=== PATIENT | male | born 1960 | race Caucasian/White ===

== ENCOUNTER 2016-09-27 05:44 | Inpatient (IN) | payer OTHER ==
[~2016-09-27] VITALS: Ht 172.7 cm; Wt 79.8 kg
[2016-09-27] VITALS (14 sets, daily range): BP systolic 132–159; BP diastolic 93–112
[2016-09-27] MEDS ORDERED: LIDOCAINE 1% 1 ML SYRINGE. ID PRN (06:00)
[2016-09-27] MEDS ORDERED: FENTANYL PF 100 MCG/2 ML VIAL. IV PRN (06:00)
[2016-09-27] MEDS ORDERED: IV RINGERS,LACTATED 1000ML 1,000 ML IV SCH (06:00)
[2016-09-27] MEDS ORDERED: MIDAZOLAM HCL 2 MG/2 ML VIAL. IV PRN (06:00)
[2016-09-27] MEDS ORDERED: MULT-246 PO (06:22)
[2016-09-27] MEDS ORDERED: FENTANYL PF 250 MCG/5 ML VIAL. ONE (07:03)
[2016-09-27] MEDS ORDERED: LIDOCAINE 2% PF Vial for OR 5 ML VIAL. ONE (07:04)
[2016-09-27] MEDS ORDERED: MIDAZOLAM HCL 2 MG/2 ML VIAL. ONE (07:04)
[2016-09-27] MEDS ORDERED: PROPOFOL 20 ML IV ONE (07:04)
[2016-09-27] MEDS ORDERED: ONDANSETRON PF 4 MG/2 ML VIAL. ONE (07:04)
[2016-09-27] MEDS ORDERED: DEXAMETHASONE SOD PHOS 20 MG/5 ML VIAL. ONE (07:04)
[2016-09-27] MEDS ORDERED: FAMOTIDINE 20 MG/2 ML VIAL ONE (07:04)
[2016-09-27] MEDS ORDERED: ROCURONIUM 50 MG/5 ML VIAL. ONE (07:07)
[2016-09-27] MEDS ORDERED: CEFAZOLIN 2GM PREMIX 50 ML IV ONE (07:11)
[2016-09-27 07:12] LABS: BASO % 0 % (0-3); EOS % 3 % (0-3); HEMATOCRIT 49.1 % (39.0-53.0); HEMOGLOBIN 16.3 g/dL (13.0-17.5); LYMPH # 1.2 x10^3/uL (1.0-4.8); LYMPH % 19 % (24-48); MEAN CORPUSCULAR HEMOGLOBIN 30 pg (25-35); MEAN CORPUSCULAR HGB CONC 33 g/dL (31-37); MEAN CORPUSCULAR VOLUME 90 fL (79-100); MONO % 12 % (0-9); NEUT % 67 % (31-73); PLATELET COUNT 154 x10^3/uL (140-400); RED BLOOD COUNT 5.46 x10^6/uL (4.30-5.70); WHITE BLOOD COUNT 6.7 x10^3/uL (4.0-11.0)
[2016-09-27 07:35] LABS: CREATININE 1.2 mg/dL (0.7-1.3); GFR 62.9; POTASSIUM 3.7 mmol/L (3.5-5.1)
[2016-09-27 07:41] LABS: ALBUMIN/GLOBULIN RATIO 1.1 (1.0-1.7); TOTAL BILIRUBIN 1.1 mg/dL (0.2-1.0); TOTAL PROTEIN 7.5 g/dL (6.4-8.2)
[2016-09-27] MEDS ORDERED: SEVOFLURANE 61 TO 120 MINUTES. IH ONE (08:05)
[2016-09-27] MEDS ORDERED: PHENYLEPHRINE in 0.9% NACL PF 1 MG/10 ML DISP.SYRIN. IV ONE (08:05)
[2016-09-27] MEDS ORDERED: NEOSTIGMINE METHYLSULFATE 5 MG/5 ML SYRINGE. ONE (09:22)
[2016-09-27] MEDS ORDERED: GLYCOPYRROLATE 1 MG/5 ML VIAL. ONE (09:22)
[2016-09-27] MEDS ORDERED: FENTANYL PF 100 MCG/2 ML VIAL. ONE (10:04)
[2016-09-27] MEDS ORDERED: 0.9 % SODIUM CHLORIDE 10 ML DISP.SYRIN. IV PRN (11:15)
[2016-09-27] MEDS ORDERED: ONDANSETRON PF 4 MG/2 ML VIAL. IV PRN (11:15)
[2016-09-27] MEDS ORDERED: HYDROMORPHONE STANDARD PCA 30 ML IV PRN (11:15)
[2016-09-27] MEDS ORDERED: PROCHLORPERAZINE 10 MG/2 ML VIAL. IV PRN (11:15)
[2016-09-27] MEDS: FENTANYL PF 100 MCG/2 ML VIAL. IV PRN ×4 (11:20→12:11)
--- NOTE | 2016-09-27 11:25 | PDOC4 ---
Operative Note Operative Note Operative Note: Preoperative Diagnosis: Cecal tubular adenoma Postoperative Diagnosis: Same Procedure: Laparoscopic right colon resection Surgeon: Giles Paste Mixer: Kelly BEE. Anesthesia: Gen. EBL: 50 mL Specimen: Right colon to pathology Drains: 11/17 in nina drain to incision Complications: None Indication: The patient is a 56-year-old male who is referred following a recent screening colonoscopy. This identified villous appearing lesion in the cecum which was too large for endoscopic resection. A biopsy was performed that identified a tubular adenoma. He was referred for surgical resection. I discussed with him a laparoscopic resection of the right colon. The details and risks of surgery were discussed. The risks include bleeding, infection, anastomotic leak, pain, hernia formation, bowel obstruction, anesthetic risk, potential need for additional surgery or procedure. He understands and would like to proceed. Description: The patient was taken to the operating room and placed supine on the operating table. Gen. anesthesia was performed. The abdomen was prepped with ChloraPrep and draped in a standard surgical manner. A small incision was made in the left abdomen through which a visualized 5 mm trocar was inserted. A pneumoperitoneum was developed and the laparoscope was introduced. There was no evidence of intra-abdominal bleeding or visceral injury. A 5 mm trocar was placed in left lower quadrant and another in the suprapubic region. We began with mobilization of the right colon. The lateral peritoneal attachments were divided using the Harmonic scalpel. We then continued along the descending colon freeing the bowel from lateral to medial. Another 5 mm trochars placed in the upper midabdomen to assist with the hepatic flexure. We began freeing up the colon from the omental attachments it from the stomach. This was continued toward the hepatic flexure. The patient had numerous attachments of the hepatic flexure many of which were fairly tight. We were able to mobilize all of these and free the flexure away from the liver. During dissection were able to identify the duodenum and it was preserved. The bowel was then able to be completely rotated toward the midline in the right colon appeared fully mobilized. A small transverse incision was made in the right abdomen with a scalpel. Cautery dissection was carried through the anterior and posterior fascial layers and the muscles divided. The Demetri wound protector was then inserted providing for some retraction. The right colon was then brought out extracorporeally. The bowel was divided at the distal ileum using a MELVIN-75 stapling device. The mesentery of the right colon was then dissected. Blood vessels were ligated with 2-0 Vicryl and there were divided. The LigaSure device assisted with mesenteric dissection. The transverse colon was then divided just distal to the hepatic flexure with a MELVIN-75 stapling device. The remaining mesentery was dissected and blood vessels were secured with 2-0 Vicryl ties. The right colon specimen was then sent off to pathology. Gross evaluation showed the adenomatous lesion to be present with no other abnormalities. A stapled [id number], functional end-to-end anastomosis was then constructed between the distal ileum and transverse colon. The antimesenteric portion of both limbs of bowel were opened and the stapler device was then introduced and deployed creating the anastomosis. The common enterotomy was oversewn with a 3-0 PDS suture. All of the staple lines were reinforced with 3-0 Vicryl interrupted sutures placed in the seromuscular layer. The bowel was then returned to the abdominal cavity. The posterior fascia was closed with a running 0 PDS suture. The anterior fascia was also closed with a running 1 PDS suture. The abdomen was then reinsufflated and inspected. Hemostasis appeared good. The anastomosis was well-visualized and was viable with no undue tension. The remaining ports were then removed and the pneumoperitoneum was relieved. The subcutaneous layer of the extraction incision was closed with 3-0 Vicryl. A 3/8 inch Nina drain was left deep to the skin with an exit site laterally. This was secured to the skin with a suture as well. The skin at all incisions was then closed with a running 4-0 Monocryl suture. The patient tolerated the procedure well and was sent to the recovery room in stable condition. At the end of the case all counts were correct. JOSHUA WRIGHT MD Sep 27, 2016 11:25
[2016-09-27] MEDS ORDERED: MORPHINE SULFATE 2 MG/ML DISP.SYRIN. ONE (11:39)
[2016-09-27] MEDS: POTASSIUM CL 20MEQ D5-0.45NACL 1,000 ML IV SCH ×2 (13:01→22:33)
[2016-09-27] MEDS: AMLODIPINE BESYLATE 10 MG TABLET PO SCH (14:13)
[2016-09-27] MEDS: LABETALOL 20 MG/4 ML DISP.SYRIN. IVP PRN (16:47)
--- NOTE | 2016-09-27 17:40 | CONS ---
DATE OF CONSULTATION: 09/27/2016 CHIEF COMPLAINT: Postop hypertension. HISTORY OF PRESENT ILLNESS: The patient is a pleasant middle-aged male who had a resection of his entire colon. He apparently has a tubular adenoma that was diagnosed on a colonoscopy. Postoperatively, he has been having some high pressures. Dr. Skaggs has consulted us for evaluation and treatment of his hypertension. PAST MEDICAL HISTORY: Benign. ALLERGIES: None. FAMILY HISTORY: Hypertension. SOCIAL HISTORY: He is . He does not drink, smoke or take drugs. MEDICATIONS: Reviewed, please refer to the MRAD. REVIEW OF SYSTEMS: GENERAL: No history of weight change, weakness or fevers. SKIN: No bruising, hair changes or rashes. EYES: No blurred, double or loss of vision. NOSE AND THROAT: No history of nosebleeds, hoarseness or sore throat. HEART: No history of palpitations, chest pain or shortness of breath on exertion. LUNGS: Denies cough, hemoptysis, wheezing or shortness of breath. GASTROINTESTINAL: Denies changes in appetite, nausea, vomiting, diarrhea or constipation. GENITOURINARY: He complains of abdominal pain from his incision. NEUROLOGIC: Denies history of numbness, tingling, tremor or weakness. PSYCHIATRIC: No history of panic, anxiety or depression. ENDOCRINE: No history of heat or cold intolerance, polyuria or polydipsia. EXTREMITIES: Denies muscle weakness, joint pain, pain on walking or stiffness. PHYSICAL EXAMINATION: VITAL SIGNS: Temperature afebrile, pulse 100, respirations 20, blood pressures ranging from 156/105 to 171/101. HEART: Distant S1, S2. LUNGS: Clear to auscultation. ABDOMEN: Soft. Decreased bowel sounds, tender. There are 5 trocars sites that appear to be clean, dry and intact. ENDOCRINE: No thyromegaly. LYMPHATICS: No cervical nodes. HEMATOPOIETIC: No bruising. PSYCHIATRIC: He seems a little depressed. EXTREMITIES: No cyanosis, clubbing or edema. LABORATORY DATA: White count 6.7, hemoglobin 16.3, platelets 154. Electrolytes normal. ASSESSMENT AND PLAN: Accelerated hypertension. The patient has been to surgery earlier today. He is now on a ____ in his room. We certainly agree with that treatment for now. I am going to go and add in Norvasc 10 p.o. every day and labetalol 20 IV q.6h. p.r.n. We will recheck the CBC, BMP in the morning. Continue wound care. Await pathology report. Thank you very much for allowing us to participate in the care of this nice gentleman. ERIS SOW DO DR: TAWNYA/areli JOB#: [id number] / [id number]
[2016-09-27] MEDS: ENOXAPARIN 40 MG/0.4 ML DISP.SYRIN. SQ SCH (22:32)
[2016-09-28 03:30] VITALS: BP 141/91
[2016-09-28] MEDS: POTASSIUM CL 20MEQ D5-0.45NACL 1,000 ML IV SCH ×3 (05:15→21:22)
[2016-09-28 05:30] LABS: BASO % 0 % (0-3); EOS % 0 % (0-3); HEMATOCRIT 44.3 % (39.0-53.0); HEMOGLOBIN 14.5 g/dL (13.0-17.5); LYMPH # 0.8 x10^3/uL (1.0-4.8); LYMPH % 6 % (24-48); MEAN CORPUSCULAR HEMOGLOBIN 29 pg (25-35); MEAN CORPUSCULAR HGB CONC 33 g/dL (31-37); MEAN CORPUSCULAR VOLUME 89 fL (79-100); MONO % 9 % (0-9); NEUT % 85 % (31-73); PLATELET COUNT 181 x10^3/uL (140-400); RED BLOOD COUNT 4.96 x10^6/uL (4.30-5.70); RED CELL DISTRIBUTION WIDTH 12.9 % (11.5-14.5); WHITE BLOOD COUNT 14.6 x10^3/uL (4.0-11.0)
[2016-09-28 05:47] LABS: CALCIUM 8.1 mg/dL (8.5-10.1); CREATININE 1.2 mg/dL (0.7-1.3); GFR 62.9; POTASSIUM 4.2 mmol/L (3.5-5.1)
[2016-09-28 07:00] VITALS: BP 138/94
[2016-09-28] MEDS: AMLODIPINE BESYLATE 10 MG TABLET PO SCH (09:03)
[2016-09-28 09:26] LABS: PLT ESTIMATE ADEQUATE (ADEQUATE)
--- NOTE | 2016-09-28 10:34 | PDOC ---
CALLIE VERDIN IN [employer]OL S[employer] COORDINATOR 09/28/16 1034: SURGICAL PROGRESS NOTE Subjective nausea this AM no flatus no pain Vital Signs Vital Signs Date Time Temp Pulse Resp B/P Pulse Ox O2 Delivery O2 Flow Rate FiO2 09/28/16 09:03 87 138/94 09/28/16 08:00 Room Air 09/28/16 07:00 98.8 18 99 2.0 98.8 I&O Intake and Output 09/28/16 07:00 Intake Total 50 ml Output Total 1400 ml Balance -1350 ml Intake Oral 0 ml IV Total 50 ml Output Urine Total 1400 ml PATIENT HAS A BANEGAS: No General: Alert, Oriented X3, Cooperative, No acute distress Abdomen: Soft, Other (ND, NTTP) Labs Laboratory Tests Test 09/27/16 06:30 09/28/16 05:25 White Blood Count 6.7x10^3/uL (4.0-11.0) 14.6x10^3/uL (4.0-11.0) Red Blood Count 5.46x10^6/uL (4.30-5.70) 4.96x10^6/uL (4.30-5.70) Hemoglobin 16.3g/dL (13.0-17.5) 14.5g/dL (13.0-17.5) Hematocrit 49.1% (39.0-53.0) 44.3% (39.0-53.0) Mean Corpuscular Volume 90fL (79-100) 89fL (79-100) Mean Corpuscular Hemoglobin 30pg (25-35) 29pg (25-35) Mean Corpuscular Hemoglobin Concent 33g/dL (31-37) 33g/dL (31-37) Red Cell Distribution Width 13.0% (11.5-14.5) 12.9% (11.5-14.5) Platelet Count 154x10^3/uL (140-400) 181x10^3/uL (140-400) Neutrophils (%) (Auto) 67% (31-73) 85% (31-73) Lymphocytes (%) (Auto) 19% (24-48) 6% (24-48) Monocytes (%) (Auto) 12% (0-9) 9% (0-9) Eosinophils (%) (Auto) 3% (0-3) 0% (0-3) Basophils (%) (Auto) 0% (0-3) 0% (0-3) Neutrophils # (Auto) 4.5x10^3uL (1.8-7.7) 12.4x10^3uL (1.8-7.7) Lymphocytes # (Auto) 1.2x10^3/uL (1.0-4.8) 0.8x10^3/uL (1.0-4.8) Monocytes # (Auto) 0.8x10^3/uL (0.0-1.1) 1.3x10^3/uL (0.0-1.1) Eosinophils # (Auto) 0.2x10^3/uL (0.0-0.7) 0.0x10^3/uL (0.0-0.7) Basophils # (Auto) 0.0x10^3/uL (0.0-0.2) 0.0x10^3/uL (0.0-0.2) Sodium Level 140mmol/L (136-145) 139mmol/L (136-145) Potassium Level 3.7mmol/L (3.5-5.1) 4.2mmol/L (3.5-5.1) Chloride Level 103mmol/L (98-107) 103mmol/L (98-107) Carbon Dioxide Level 26mmol/L (21-32) 29mmol/L (21-32) Anion Gap 11 (6-14) 7 (6-14) Blood Urea Nitrogen 13mg/dL (8-26) 12mg/dL (8-26) Creatinine 1.2mg/dL (0.7-1.3) 1.2mg/dL (0.7-1.3) Estimated GFR (Cockcroft-Gault) 62.9 62.9 BUN/Creatinine Ratio 11 (6-20) Glucose Level 85mg/dL (70-99) 133mg/dL (70-99) Calcium Level 9.0mg/dL (8.5-10.1) 8.1mg/dL (8.5-10.1) Total Bilirubin 1.1mg/dL (0.2-1.0) Aspartate Amino Transf (AST/SGOT) 24U/L (15-37) Alanine Aminotransferase (ALT/SGPT) 25U/L (16-63) Alkaline Phosphatase 53U/L (46-116) Total Protein 7.5g/dL (6.4-8.2) Albumin 4.0g/dL (3.4-5.0) Albumin/Globulin Ratio 1.1 (1.0-1.7) Segmented Neutrophils % 77% (35-66) Band Neutrophils % 4% (0-9) Lymphocytes % 9% (24-48) Atypical Lymphocytes % (Manual) 1% (0-0) Monocytes % 9% (0-10) Platelet Estimate Adequate (ADEQUATE) Laboratory Tests Test 09/28/16 05:25 White Blood Count 14.6x10^3/uL (4.0-11.0) Red Blood Count 4.96x10^6/uL (4.30-5.70) Hemoglobin 14.5g/dL (13.0-17.5) Hematocrit 44.3% (39.0-53.0) Mean Corpuscular Volume 89fL (79-100) Mean Corpuscular Hemoglobin 29pg (25-35) Mean Corpuscular Hemoglobin Concent 33g/dL (31-37) Red Cell Distribution Width 12.9% (11.5-14.5) Platelet Count 181x10^3/uL (140-400) Neutrophils (%) (Auto) 85% (31-73) Lymphocytes (%) (Auto) 6% (24-48) Monocytes (%) (Auto) 9% (0-9) Eosinophils (%) (Auto) 0% (0-3) Basophils (%) (Auto) 0% (0-3) Neutrophils # (Auto) 12.4x10^3uL (1.8-7.7) Lymphocytes # (Auto) 0.8x10^3/uL (1.0-4.8) Monocytes # (Auto) 1.3x10^3/uL (0.0-1.1) Eosinophils # (Auto) 0.0x10^3/uL (0.0-0.7) Basophils # (Auto) 0.0x10^3/uL (0.0-0.2) Segmented Neutrophils % 77% (35-66) Band Neutrophils % 4% (0-9) Lymphocytes % 9% (24-48) Atypical Lymphocytes % (Manual) 1% (0-0) Monocytes % 9% (0-10) Platelet Estimate Adequate (ADEQUATE) Sodium Level 139mmol/L (136-145) Potassium Level 4.2mmol/L (3.5-5.1) Chloride Level 103mmol/L (98-107) Carbon Dioxide Level 29mmol/L (21-32) Anion Gap 7 (6-14) Blood Urea Nitrogen 12mg/dL (8-26) Creatinine 1.2mg/dL (0.7-1.3) Estimated GFR (Cockcroft-Gault) 62.9 Glucose Level 133mg/dL (70-99) Calcium Level 8.1mg/dL (8.5-10.1) Problem List Problems Medical Problems: (1) Tubular adenoma of colon Status: Acute Assessment/Plan POD#1 lap right colon resection await bowel function Problems: JOSHUA WRIGHT MD 09/29/16 1215: SURGICAL PROGRESS NOTE Assessment/Plan Agree with above Problems: CALLIE VERDIN APRN Sep 28, 2016 10:34 JOSHUA WRIGHT MD Sep 29, 2016 12:15
[2016-09-28 11:00] VITALS: BP 142/88
[2016-09-28 15:00] VITALS: BP 154/97
--- NOTE | 2016-09-28 15:09 | PDOC ---
PROGRESS NOTES Chief Complaint Chief Complaint Polyp resection Accelerated HTN ASSESSMENT AND PLAN: 1. Colon Polyp: s/p R hemicolectomy on 09/[address] Skaggs. recovering appropriately. remains NPO for now 2. Pain control: good with [employer]GER. 3. Constipation: surgical and narcotic induced. d/w pt. he is already trying to minimize [employer]GER. 3. HTN: had been noted by new PCP. not on meds prior to admit. Norvasc started here, monitor. labetalol PRN 4. Prophylaxis: lovenox 5. Dispo: home when PO established Vitals Vitals Vital Signs Date Time Temp Pulse Resp B/P Pulse Ox O2 Delivery O2 Flow Rate FiO2 09/28/16 11:00 97.9 92 18 142/88 97 Room Air 97.9 09/28/16 07:00 2.0 Physical Exam General: Alert, Oriented X3, Cooperative, No acute distress Abdomen: Soft, Other (ND, NTTP) Labs LABS Laboratory Tests Test 09/28/16 05:25 White Blood Count 14.6x10^3/uL (4.0-11.0) Red Blood Count 4.96x10^6/uL (4.30-5.70) Hemoglobin 14.5g/dL (13.0-17.5) Hematocrit 44.3% (39.0-53.0) Mean Corpuscular Volume 89fL (79-100) Mean Corpuscular Hemoglobin 29pg (25-35) Mean Corpuscular Hemoglobin Concent 33g/dL (31-37) Red Cell Distribution Width 12.9% (11.5-14.5) Platelet Count 181x10^3/uL (140-400) Neutrophils (%) (Auto) 85% (31-73) Lymphocytes (%) (Auto) 6% (24-48) Monocytes (%) (Auto) 9% (0-9) Eosinophils (%) (Auto) 0% (0-3) Basophils (%) (Auto) 0% (0-3) Neutrophils # (Auto) 12.4x10^3uL (1.8-7.7) Lymphocytes # (Auto) 0.8x10^3/uL (1.0-4.8) Monocytes # (Auto) 1.3x10^3/uL (0.0-1.1) Eosinophils # (Auto) 0.0x10^3/uL (0.0-0.7) Basophils # (Auto) 0.0x10^3/uL (0.0-0.2) Segmented Neutrophils % 77% (35-66) Band Neutrophils % 4% (0-9) Lymphocytes % 9% (24-48) Atypical Lymphocytes % (Manual) 1% (0-0) Monocytes % 9% (0-10) Platelet Estimate Adequate (ADEQUATE) Sodium Level 139mmol/L (136-145) Potassium Level 4.2mmol/L (3.5-5.1) Chloride Level 103mmol/L (98-107) Carbon Dioxide Level 29mmol/L (21-32) Anion Gap 7 (6-14) Blood Urea Nitrogen 12mg/dL (8-26) Creatinine 1.2mg/dL (0.7-1.3) Estimated GFR (Cockcroft-Gault) 62.9 Glucose Level 133mg/dL (70-99) Calcium Level 8.1mg/dL (8.5-10.1) Review of Systems Review of Systems feels ok, walking in flores. no flatus yet Comment Review of Relevant I have reviewed the following items bandar (where applicable) has been applied. Labs Laboratory Tests Test 09/27/16 06:30 09/28/16 05:25 White Blood Count 6.7x10^3/uL (4.0-11.0) 14.6x10^3/uL (4.0-11.0) Red Blood Count 5.46x10^6/uL (4.30-5.70) 4.96x10^6/uL (4.30-5.70) Hemoglobin 16.3g/dL (13.0-17.5) 14.5g/dL (13.0-17.5) Hematocrit 49.1% (39.0-53.0) 44.3% (39.0-53.0) Mean Corpuscular Volume 90fL (79-100) 89fL (79-100) Mean Corpuscular Hemoglobin 30pg (25-35) 29pg (25-35) Mean Corpuscular Hemoglobin Concent 33g/dL (31-37) 33g/dL (31-37) Red Cell Distribution Width 13.0% (11.5-14.5) 12.9% (11.5-14.5) Platelet Count 154x10^3/uL (140-400) 181x10^3/uL (140-400) Neutrophils (%) (Auto) 67% (31-73) 85% (31-73) Lymphocytes (%) (Auto) 19% (24-48) 6% (24-48) Monocytes (%) (Auto) 12% (0-9) 9% (0-9) Eosinophils (%) (Auto) 3% (0-3) 0% (0-3) Basophils (%) (Auto) 0% (0-3) 0% (0-3) Neutrophils # (Auto) 4.5x10^3uL (1.8-7.7) 12.4x10^3uL (1.8-7.7) Lymphocytes # (Auto) 1.2x10^3/uL (1.0-4.8) 0.8x10^3/uL (1.0-4.8) Monocytes # (Auto) 0.8x10^3/uL (0.0-1.1) 1.3x10^3/uL (0.0-1.1) Eosinophils # (Auto) 0.2x10^3/uL (0.0-0.7) 0.0x10^3/uL (0.0-0.7) Basophils # (Auto) 0.0x10^3/uL (0.0-0.2) 0.0x10^3/uL (0.0-0.2) Sodium Level 140mmol/L (136-145) 139mmol/L (136-145) Potassium Level 3.7mmol/L (3.5-5.1) 4.2mmol/L (3.5-5.1) Chloride Level 103mmol/L (98-107) 103mmol/L (98-107) Carbon Dioxide Level 26mmol/L (21-32) 29mmol/L (21-32) Anion Gap 11 (6-14) 7 (6-14) Blood Urea Nitrogen 13mg/dL (8-26) 12mg/dL (8-26) Creatinine 1.2mg/dL (0.7-1.3) 1.2mg/dL (0.7-1.3) Estimated GFR (Cockcroft-Gault) 62.9 62.9 BUN/Creatinine Ratio 11 (6-20) Glucose Level 85mg/dL (70-99) 133mg/dL (70-99) Calcium Level 9.0mg/dL (8.5-10.1) 8.1mg/dL (8.5-10.1) Total Bilirubin 1.1mg/dL (0.2-1.0) Aspartate Amino Transf (AST/SGOT) 24U/L (15-37) Alanine Aminotransferase (ALT/SGPT) 25U/L (16-63) Alkaline Phosphatase 53U/L (46-116) Total Protein 7.5g/dL (6.4-8.2) Albumin 4.0g/dL (3.4-5.0) Albumin/Globulin Ratio 1.1 (1.0-1.7) Segmented Neutrophils % 77% (35-66) Band Neutrophils % 4% (0-9) Lymphocytes % 9% (24-48) Atypical Lymphocytes % (Manual) 1% (0-0) Monocytes % 9% (0-10) Platelet Estimate Adequate (ADEQUATE) Laboratory Tests Test 09/28/16 05:25 White Blood Count 14.6x10^3/uL (4.0-11.0) Red Blood Count 4.96x10^6/uL (4.30-5.70) Hemoglobin 14.5g/dL (13.0-17.5) Hematocrit 44.3% (39.0-53.0) Mean Corpuscular Volume 89fL (79-100) Mean Corpuscular Hemoglobin 29pg (25-35) Mean Corpuscular Hemoglobin Concent 33g/dL (31-37) Red Cell Distribution Width 12.9% (11.5-14.5) Platelet Count 181x10^3/uL (140-400) Neutrophils (%) (Auto) 85% (31-73) Lymphocytes (%) (Auto) 6% (24-48) Monocytes (%) (Auto) 9% (0-9) Eosinophils (%) (Auto) 0% (0-3) Basophils (%) (Auto) 0% (0-3) Neutrophils # (Auto) 12.4x10^3uL (1.8-7.7) Lymphocytes # (Auto) 0.8x10^3/uL (1.0-4.8) Monocytes # (Auto) 1.3x10^3/uL (0.0-1.1) Eosinophils # (Auto) 0.0x10^3/uL (0.0-0.7) Basophils # (Auto) 0.0x10^3/uL (0.0-0.2) Segmented Neutrophils % 77% (35-66) Band Neutrophils % 4% (0-9) Lymphocytes % 9% (24-48) Atypical Lymphocytes % (Manual) 1% (0-0) Monocytes % 9% (0-10) Platelet Estimate Adequate (ADEQUATE) Sodium Level 139mmol/L (136-145) Potassium Level 4.2mmol/L (3.5-5.1) Chloride Level 103mmol/L (98-107) Carbon Dioxide Level 29mmol/L (21-32) Anion Gap 7 (6-14) Blood Urea Nitrogen 12mg/dL (8-26) Creatinine 1.2mg/dL (0.7-1.3) Estimated GFR (Cockcroft-Gault) 62.9 Glucose Level 133mg/dL (70-99) Calcium Level 8.1mg/dL (8.5-10.1) Medications Current Medications Midazolam HCl (Versed) 2 mg PRN 1X PRN IV PRIOR TO PROCEDURE; Start 09/27/16 at 06:00; Stop 09/28/16 at 05:59; Status DC Fentanyl Citrate (Fentanyl 2ml Vial) 25 mcg PRN Q5MIN PRN IV X 2 DOSES FOR PAIN ; Start 09/27/16 at 06:00; Stop 09/28/16 at 05:59; Status DC Fentanyl Citrate 50 mcg 50 mcg PRN Q5MIN PRN IV X 2 DOSES FOR PAIN Last administered on 09/27/16 12:11; Start 09/27/16 at 06:00; Stop 09/28/16 at 05:59 ; Status DC Lactated Ringer's (Iv Lactated Ringers) 1,000 ml @ 125 mls/hr Q8H IV Last administered on 09/27/16 06:54; Start 09/27/16 at 06:00; Stop 09/27/16 at 06:02 ; Status DC Lidocaine HCl 2 ml 1X PRN PRN ID IV START; Start 09/27/16 at 06:00; Stop at 05:59; Status DC Fentanyl Citrate (Fentanyl 5ml Vial) 250 mcg STK-MED ONCE .ROUTE ; Start at 07:03; Stop 09/27/16 at 07:04; Status DC Midazolam HCl (Versed) 2 mg STK-MED ONCE .ROUTE ; Start 09/27/16 at 07:04; Stop 09/27/16 at 07:05; Status DC Ondansetron HCl 4 mg 4 mg STK-MED ONCE .ROUTE ; Start 09/27/16 at 07:04; Stop at 07:05; Status DC Propofol (Diprivan) 20 ml @ As Directed STK-MED ONCE IV ; Start 09/27/16 at 07: 04; Stop 09/27/16 at 07:05; Status DC Lidocaine HCl (Lidocaine Pf 2% Vial) 5 ml STK-MED ONCE .ROUTE ; Start 09/27/16 at 07:04; Stop 09/27/16 at 07:05; Status DC Dexamethasone Sodium Phosphate (Decadron) 20 mg STK-MED ONCE .ROUTE ; Start at 07:04; Stop 09/27/16 at 07:05; Status DC Famotidine (Pepcid) 20 mg STK-MED ONCE .ROUTE ; Start 09/27/16 at 07:04; Stop at 07:05; Status DC Rocuronium [place] 50 mg 50 mg STK-MED ONCE .ROUTE ; Start 09/27/16 at 07:07; Stop 09/27/16 at 07:08; Status DC Cefazolin Sodium/ Dextrose (Ancef 2gm Premix) 50 ml @ As Directed STK-MED ONCE IV Last administered on 09/27/16t 07:27; Start 09/27/16 at 07:11; Stop at 07:12; Status DC Sevoflurane (Ultane) 60 ml STK-MED ONCE IH ; Start 09/27/16 at 08:05; Stop 09/27 at 08:06; Status DC Phenylephrine HCl 1 mg STK-MED ONCE IV ; Start 09/27/16 at 08:05; Stop 09/27/16 at 08:06; Status DC Glycopyrrolate (Robinul) 1 mg STK-MED ONCE .ROUTE ; Start 09/27/16 at 09:22; Stop 09/27/16 at 09:23; Status DC Neostigmine Methylsulfate 5 mg STK-MED ONCE .ROUTE ; Start 09/27/16 at 09:22; Stop 09/27/16 at 09:23; Status DC Fentanyl Citrate (Fentanyl 2ml Vial) 100 mcg STK-MED ONCE .ROUTE ; Start at 10:04; Stop 09/27/16 at 10:05; Status DC Enoxaparin Sodium (Lovenox 40mg Syringe) 40 mg Q24H SQ Last administered on 22:32; Start 09/27/16 at 22:00 Sodium Chloride 3 ml 3 ml QSHIFT PRN IV AFTER MEDS AND BLOOD DRAWS; Start 09/27 at 11:15 Potassium Chloride/Dextrose/ Sod Cl 1,000 ml @ 125 mls/hr Q8H IV Last administered on 09/28/16 12:59; Start 09/27/16 at 12:30 Hydromorphone HCl (Dilaudid Standard [employer]) 30 ml @ 0 mls/hr CONT PRN PRN IV PROTOCOL Last administered on 09/27/16 13:00; Start 09/27/16 at 11:15 Ondansetron HCl (Zofran) 4 mg PRN Q6HRS PRN IV NAUESA, 1ST CHOICE; Start at 11:15 Prochlorperazine Edisylate (Compazine) 5 mg PRN Q6HRS PRN IV N/V, 2nd Choice, MR X1; Start 09/27/16 at 11:15 Morphine Sulfate 2 mg STK-MED ONCE .ROUTE Last administered on 09/27/16 11:39 ; Start 09/27/16 at 11:39; Stop 09/27/16 at 11:40; Status DC Amlodipine Besylate (Norvasc) 10 mg DAILY PO Last administered on 09/28/16 09: 03; Start 09/27/16 at 14:00 Labetalol HCl (Normodyne) 20 mg PRN Q6HRS PRN IVP HYPERTENSION, SEE COMMENTS Last administered on 1/16/17at 16:47; Start 09/27/16 at 16:30 Active Scripts Active Reported Multi-Vitamin Daily (Multivitamin) 1 Each Tablet 1 Each PO Vitals/I & O Vital Sign - Last 24 Hours 09/27/16 09/27/16 09/27/16 09/27/16 15:57 16:47 16:49 17:47 Pulse 99 99 99 100 B/P 151/110 157/106 157/106 132/94 O2 Delivery Nasal Cannula O2 Flow Rate 2.0 09/27/16 09/27/16 09/27/16 09/27/16 18:07 19:18 19:47 20:00 Temp 99.0 99.0 Pulse 88 92 Resp 16 B/P 153/100 154/101 O2 Delivery Nasal Cannula Nasal Cannula Nasal Cannula O2 Flow Rate 2.0 2.0 2.0 09/27/16 09/28/16 09/28/16 09/28/16 22:50 03:30 07:00 08:00 Temp 97.7 98.4 98.8 97.7 98.4 98.8 Pulse 100 89 87 Resp 16 20 18 B/P 136/93 141/91 138/94 Pulse Ox 95 98 99 O2 Delivery Room Air Nasal Cannula Room Air O2 Flow Rate 2.0 09/28/16 09/28/16 09:03 11:00 Temp 97.9 97.9 Pulse 87 92 Resp 18 B/P 138/94 142/88 Pulse Ox 97 O2 Delivery Room Air Intake and Output 09/27/16 09/27/16 09/28/16 15:00 23:00 07:00 Intake Total 50 ml 0 ml 0 ml Output Total 450 ml 950 ml Balance 50 ml -450 ml -950 ml TAMIA ESCOBAR MD Sep 28, 2016 15:09
[2016-09-28 19:00] VITALS: BP 153/103
[2016-09-28] MEDS: ENOXAPARIN 40 MG/0.4 ML DISP.SYRIN. SQ SCH (21:22)
[2016-09-28] MEDS ORDERED: TEMAZEPAM 15 MG CAPSULE PO PRN (23:30)
[2016-09-28 23:35] VITALS: BP 173/104
[2016-09-29 03:09] VITALS: BP 195/108
[2016-09-29] MEDS: LABETALOL 20 MG/4 ML DISP.SYRIN. IVP PRN (04:07)
[2016-09-29] MEDS: POTASSIUM CL 20MEQ D5-0.45NACL 1,000 ML IV SCH (04:30)
[2016-09-29 07:00] VITALS: BP 155/103
--- NOTE | 2016-09-29 09:08 | PDOC ---
PROGRESS NOTES Chief Complaint Chief Complaint Polyp resection Accelerated HTN ASSESSMENT AND PLAN: 1. Colon Polyp: s/p R hemicolectomy on 09/[address] Skaggs. recovering appropriately. remains NPO for now 2. Pain control: good. ACCOUNT INSTALLATION SPECIALIST stopped. 3. Constipation: surgical and narcotic induced. no flatus yet 4. Heart burn: IV pepcid 5. HTN: had been noted by new PCP. not on meds prior to admit. Norvasc started here, monitor. labetalol PRN 6. insomnia: restoril PRN 7. Prophylaxis: lovenox 8. Dispo: home when PO established Vitals Vitals Vital Signs Date Time Temp Pulse Resp B/P Pulse Ox O2 Delivery O2 Flow Rate FiO2 09/29/16 07:00 98.8 96 18 155/103 95 Room Air 98.8 09/29/16 03:09 2.0 Physical Exam General: Alert, Oriented X3, Cooperative, No acute distress Heart: Regular rate Lungs: Clear Abdomen: Soft, Other ( mild TTP, sl distented. port incisions C/D/I) Extremities: No edema Skin: No rashes Review of Systems Review of Systems slept well with restoril. abd discomfort, no flatus Comment Review of Relevant I have reviewed the following items bandar (where applicable) has been applied. Labs Laboratory Tests Test 09/28/16 05:25 White Blood Count 14.6x10^3/uL (4.0-11.0) Red Blood Count 4.96x10^6/uL (4.30-5.70) Hemoglobin 14.5g/dL (13.0-17.5) Hematocrit 44.3% (39.0-53.0) Mean Corpuscular Volume 89fL (79-100) Mean Corpuscular Hemoglobin 29pg (25-35) Mean Corpuscular Hemoglobin Concent 33g/dL (31-37) Red Cell Distribution Width 12.9% (11.5-14.5) Platelet Count 181x10^3/uL (140-400) Neutrophils (%) (Auto) 85% (31-73) Lymphocytes (%) (Auto) 6% (24-48) Monocytes (%) (Auto) 9% (0-9) Eosinophils (%) (Auto) 0% (0-3) Basophils (%) (Auto) 0% (0-3) Neutrophils # (Auto) 12.4x10^3uL (1.8-7.7) Lymphocytes # (Auto) 0.8x10^3/uL (1.0-4.8) Monocytes # (Auto) 1.3x10^3/uL (0.0-1.1) Eosinophils # (Auto) 0.0x10^3/uL (0.0-0.7) Basophils # (Auto) 0.0x10^3/uL (0.0-0.2) Segmented Neutrophils % 77% (35-66) Band Neutrophils % 4% (0-9) Lymphocytes % 9% (24-48) Atypical Lymphocytes % (Manual) 1% (0-0) Monocytes % 9% (0-10) Platelet Estimate Adequate (ADEQUATE) Sodium Level 139mmol/L (136-145) Potassium Level 4.2mmol/L (3.5-5.1) Chloride Level 103mmol/L (98-107) Carbon Dioxide Level 29mmol/L (21-32) Anion Gap 7 (6-14) Blood Urea Nitrogen 12mg/dL (8-26) Creatinine 1.2mg/dL (0.7-1.3) Estimated GFR (Cockcroft-Gault) 62.9 Glucose Level 133mg/dL (70-99) Calcium Level 8.1mg/dL (8.5-10.1) Medications Current Medications Midazolam HCl (Versed) 2 mg PRN 1X PRN IV PRIOR TO PROCEDURE; Start 09/27/16 at 06:00; Stop 09/28/16 at 05:59; Status DC Fentanyl Citrate (Fentanyl 2ml Vial) 25 mcg PRN Q5MIN PRN IV X 2 DOSES FOR PAIN ; Start 09/27/16 at 06:00; Stop 09/28/16 at 05:59; Status DC Fentanyl Citrate 50 mcg 50 mcg PRN Q5MIN PRN IV X 2 DOSES FOR PAIN Last administered on 09/27/16 12:11; Start 09/27/16 at 06:00; Stop 09/28/16 at 05:59 ; Status DC Lactated Ringer's (Iv Lactated Ringers) 1,000 ml @ 125 mls/hr Q8H IV Last administered on 09/27/16 06:54; Start 09/27/16 at 06:00; Stop 09/27/16 at 06:02 ; Status DC Lidocaine HCl 2 ml 1X PRN PRN ID IV START; Start 09/27/16 at 06:00; Stop at 05:59; Status DC Fentanyl Citrate (Fentanyl 5ml Vial) 250 mcg STK-MED ONCE .ROUTE ; Start at 07:03; Stop 09/27/16 at 07:04; Status DC Midazolam HCl (Versed) 2 mg STK-MED ONCE .ROUTE ; Start 09/27/16 at 07:04; Stop 09/27/16 at 07:05; Status DC Ondansetron HCl 4 mg 4 mg STK-MED ONCE .ROUTE ; Start 09/27/16 at 07:04; Stop at 07:05; Status DC Propofol (Diprivan) 20 ml @ As Directed STK-MED ONCE IV ; Start 09/27/16 at 07: 04; Stop 09/27/16 at 07:05; Status DC Lidocaine HCl (Lidocaine Pf 2% Vial) 5 ml STK-MED ONCE .ROUTE ; Start 09/27/16 at 07:04; Stop 09/27/16 at 07:05; Status DC Dexamethasone Sodium Phosphate (Decadron) 20 mg STK-MED ONCE .ROUTE ; Start at 07:04; Stop 09/27/16 at 07:05; Status DC Famotidine (Pepcid) 20 mg STK-MED ONCE .ROUTE ; Start 09/27/16 at 07:04; Stop at 07:05; Status DC Rocuronium [place] 50 mg 50 mg STK-MED ONCE .ROUTE ; Start 09/27/16 at 07:07; Stop 09/27/16 at 07:08; Status DC Cefazolin Sodium/ Dextrose (Ancef 2gm Premix) 50 ml @ As Directed STK-MED ONCE IV Last administered on 09/27/16t 07:27; Start 09/27/16 at 07:11; Stop at 07:12; Status DC Sevoflurane (Ultane) 60 ml STK-MED ONCE IH ; Start 09/27/16 at 08:05; Stop 09/27 at 08:06; Status DC Phenylephrine HCl 1 mg STK-MED ONCE IV ; Start 09/27/16 at 08:05; Stop 09/27/16 at 08:06; Status DC Glycopyrrolate (Robinul) 1 mg STK-MED ONCE .ROUTE ; Start 09/27/16 at 09:22; Stop 09/27/16 at 09:23; Status DC Neostigmine Methylsulfate 5 mg STK-MED ONCE .ROUTE ; Start 09/27/16 at 09:22; Stop 09/27/16 at 09:23; Status DC Fentanyl Citrate (Fentanyl 2ml Vial) 100 mcg STK-MED ONCE .ROUTE ; Start at 10:04; Stop 09/27/16 at 10:05; Status DC Enoxaparin Sodium (Lovenox 40mg Syringe) 40 mg Q24H SQ Last administered on 21:22; Start 09/27/16 at 22:00 Sodium Chloride 3 ml 3 ml QSHIFT PRN IV AFTER MEDS AND BLOOD DRAWS; Start 09/27 at 11:15 Potassium Chloride/Dextrose/ Sod Cl 1,000 ml @ 125 mls/hr Q8H IV Last administered on 09/29/16 04:30; Start 09/27/16 at 12:30 Hydromorphone HCl (Dilaudid Standard ACCOUNT INSTALLATION SPECIALIST) 30 ml @ 0 mls/hr CONT PRN PRN IV PROTOCOL Last administered on 09/27/16 13:00; Start 09/27/16 at 11:15 Ondansetron HCl (Zofran) 4 mg PRN Q6HRS PRN IV NAUESA, 1ST CHOICE Last administered on 09/28/16 23:43; Start 09/27/16 at 11:15 Prochlorperazine Edisylate (Compazine) 5 mg PRN Q6HRS PRN IV N/V, 2nd Choice, MR X1; Start 09/27/16 at 11:15 Morphine Sulfate 2 mg STK-MED ONCE .ROUTE Last administered on 09/27/16 11:39 ; Start 09/27/16 at 11:39; Stop 09/27/16 at 11:40; Status DC Amlodipine Besylate (Norvasc) 10 mg DAILY PO Last administered on 09/28/16 09: 03; Start 09/27/16 at 14:00 Labetalol HCl (Normodyne) 20 mg PRN Q6HRS PRN IVP HYPERTENSION, SEE COMMENTS Last administered on 09/29/16 04:07; Start 09/27/16 at 16:30 Temazepam (Restoril) 15 mg PRN QHS PRN PO INSOMNIA Last administered on 23:41; Start 09/28/16 at 23:30 Active Scripts Active Reported Multi-Vitamin Daily (Multivitamin) 1 Each Tablet 1 Each PO Vitals/I & O Vital Sign - Last 24 Hours 09/28/16 09/28/16 09/28/16 09/28/16 09:03 11:00 15:00 19:00 Temp 97.9 98.2 100.4 97.9 98.2 100.4 Pulse 87 92 99 99 Resp 18 18 B/P 138/94 142/88 154/97 153/103 Pulse Ox 97 95 99 O2 Delivery Room Air Nasal Cannula Nasal Cannula O2 Flow Rate 2.0 2.0 09/28/16 09/28/16 09/28/16 09/29/16 20:45 21:21 23:35 03:09 Temp 101.1 97.9 101.1 97.9 Pulse 100 111 Resp 22 18 18 B/P 173/104 195/108 Pulse Ox 99 94 94 O2 Delivery Room Air Room Air Nasal Cannula Nasal Cannula O2 Flow Rate 2.0 2.0 09/29/16 09/29/16 04:07 07:00 Temp 98.8 98.8 Pulse 111 96 Resp 18 B/P 195/108 155/103 Pulse Ox 95 O2 Delivery Room Air Intake and Output 09/28/16 09/28/16 09/29/16 15:00 23:00 07:00 Intake Total 4919 ml Output Total 600 ml 825 ml 1650 ml Balance -600 ml -825 ml 3269 ml TAMIA ESCOBAR MD Sep 29, 2016 09:07
[2016-09-29] MEDS: FAMOTIDINE 20 MG/2 ML VIAL IVP SCH ×2 (09:41→14:53)
[2016-09-29] MEDS: POTASSIUM CL 20MEQ-0.45% NACL 1,000 ML IV SCH ×2 (09:42→23:27)
[2016-09-29] MEDS: AMLODIPINE BESYLATE 10 MG TABLET PO SCH (09:42)
[2016-09-29 11:00] VITALS: BP 165/108
--- NOTE | 2016-09-29 12:15 | PDOC ---
PROGRESS NOTES Subjective Subjective doing "ok", no flatus, feels some distension Objective Objective Vital Signs Date Time Temp Pulse Resp B/P Pulse Ox O2 Delivery O2 Flow Rate FiO2 09/29/16 11:00 99.0 99 16 165/108 96 Room Air 99.0 09/29/16 03:09 2.0 Intake and Output 09/29/16 07:00 Intake Total 4919 ml Output Total 3075 ml Balance 1844 ml Intake Oral 0 ml IV Total 4919 ml Output Urine Total 3075 ml Physical Exam Abdomen: Soft (mildly distended) Assessment Assessment Problems Medical Problems: (1) Tubular adenoma of colon Status: Acute Plan Plan of Care Keep NPO, await return of bowel function Comment Review of Relevant I have reviewed the following items bandar (where applicable) has been applied. Labs Laboratory Tests Test 09/28/16 05:25 White Blood Count 14.6x10^3/uL (4.0-11.0) Red Blood Count 4.96x10^6/uL (4.30-5.70) Hemoglobin 14.5g/dL (13.0-17.5) Hematocrit 44.3% (39.0-53.0) Mean Corpuscular Volume 89fL (79-100) Mean Corpuscular Hemoglobin 29pg (25-35) Mean Corpuscular Hemoglobin Concent 33g/dL (31-37) Red Cell Distribution Width 12.9% (11.5-14.5) Platelet Count 181x10^3/uL (140-400) Neutrophils (%) (Auto) 85% (31-73) Lymphocytes (%) (Auto) 6% (24-48) Monocytes (%) (Auto) 9% (0-9) Eosinophils (%) (Auto) 0% (0-3) Basophils (%) (Auto) 0% (0-3) Neutrophils # (Auto) 12.4x10^3uL (1.8-7.7) Lymphocytes # (Auto) 0.8x10^3/uL (1.0-4.8) Monocytes # (Auto) 1.3x10^3/uL (0.0-1.1) Eosinophils # (Auto) 0.0x10^3/uL (0.0-0.7) Basophils # (Auto) 0.0x10^3/uL (0.0-0.2) Segmented Neutrophils % 77% (35-66) Band Neutrophils % 4% (0-9) Lymphocytes % 9% (24-48) Atypical Lymphocytes % (Manual) 1% (0-0) Monocytes % 9% (0-10) Platelet Estimate Adequate (ADEQUATE) Sodium Level 139mmol/L (136-145) Potassium Level 4.2mmol/L (3.5-5.1) Chloride Level 103mmol/L (98-107) Carbon Dioxide Level 29mmol/L (21-32) Anion Gap 7 (6-14) Blood Urea Nitrogen 12mg/dL (8-26) Creatinine 1.2mg/dL (0.7-1.3) Estimated GFR (Cockcroft-Gault) 62.9 Glucose Level 133mg/dL (70-99) Calcium Level 8.1mg/dL (8.5-10.1) Medications Current Medications Midazolam HCl (Versed) 2 mg PRN 1X PRN IV PRIOR TO PROCEDURE; Start 09/27/16 at 06:00; Stop 09/28/16 at 05:59; Status DC Fentanyl Citrate (Fentanyl 2ml Vial) 25 mcg PRN Q5MIN PRN IV X 2 DOSES FOR PAIN ; Start 09/27/16 at 06:00; Stop 09/28/16 at 05:59; Status DC Fentanyl Citrate 50 mcg 50 mcg PRN Q5MIN PRN IV X 2 DOSES FOR PAIN Last administered on 09/27/16t 12:11; Start 09/27/16 at 06:00; Stop 09/28/16 at 05:59 ; Status DC Lactated Ringer's (Iv Lactated Ringers) 1,000 ml @ 125 mls/hr Q8H IV Last administered on 09/27/16 06:54; Start 09/27/16 at 06:00; Stop 09/27/16 at 06:02 ; Status DC Lidocaine HCl 2 ml 1X PRN PRN ID IV START; Start 09/27/16 at 06:00; Stop at 05:59; Status DC Fentanyl Citrate (Fentanyl 5ml Vial) 250 mcg STK-MED ONCE .ROUTE ; Start at 07:03; Stop 09/27/16 at 07:04; Status DC Midazolam HCl (Versed) 2 mg STK-MED ONCE .ROUTE ; Start 09/27/16 at 07:04; Stop 09/27/16 at 07:05; Status DC Ondansetron HCl 4 mg 4 mg STK-MED ONCE .ROUTE ; Start 09/27/16 at 07:04; Stop at 07:05; Status DC Propofol (Diprivan) 20 ml @ As Directed STK-MED ONCE IV ; Start 09/27/16 at 07: 04; Stop 09/27/16 at 07:05; Status DC Lidocaine HCl (Lidocaine Pf 2% Vial) 5 ml STK-MED ONCE .ROUTE ; Start 09/27/16 at 07:04; Stop 09/27/16 at 07:05; Status DC Dexamethasone Sodium Phosphate (Decadron) 20 mg STK-MED ONCE .ROUTE ; Start at 07:04; Stop 09/27/16 at 07:05; Status DC Famotidine (Pepcid) 20 mg STK-MED ONCE .ROUTE ; Start 09/27/16 at 07:04; Stop at 07:05; Status DC Rocuronium [place] 50 mg 50 mg STK-MED ONCE .ROUTE ; Start 09/27/16 at 07:07; Stop 09/27/16 at 07:08; Status DC Cefazolin Sodium/ Dextrose (Ancef 2gm Premix) 50 ml @ As Directed STK-MED ONCE IV Last administered on 09/27/16t 07:27; Start 09/27/16 at 07:11; Stop at 07:12; Status DC Sevoflurane (Ultane) 60 ml STK-MED ONCE IH ; Start 09/27/16 at 08:05; Stop 09/27 at 08:06; Status DC Phenylephrine HCl 1 mg STK-MED ONCE IV ; Start 09/27/16 at 08:05; Stop 09/27/16 at 08:06; Status DC Glycopyrrolate (Robinul) 1 mg STK-MED ONCE .ROUTE ; Start 09/27/16 at 09:22; Stop 09/27/16 at 09:23; Status DC Neostigmine Methylsulfate 5 mg STK-MED ONCE .ROUTE ; Start 09/27/16 at 09:22; Stop 09/27/16 at 09:23; Status DC Fentanyl Citrate (Fentanyl 2ml Vial) 100 mcg STK-MED ONCE .ROUTE ; Start at 10:04; Stop 09/27/16 at 10:05; Status DC Enoxaparin Sodium (Lovenox 40mg Syringe) 40 mg Q24H SQ Last administered on 21:22; Start 09/27/16 at 22:00 Sodium Chloride 3 ml 3 ml QSHIFT PRN IV AFTER MEDS AND BLOOD DRAWS; Start 09/27 at 11:15 Potassium Chloride/Dextrose/ Sod Cl 1,000 ml @ 125 mls/hr Q8H IV Last administered on 09/29/16 04:30; Start 09/27/16 at 12:30; Stop 09/29/16 at 09:08 ; Status DC Hydromorphone HCl (Dilaudid Standard P[employer]S MA[employer]ER) 30 ml @ 0 mls/hr CONT PRN PRN IV PROTOCOL Last administered on 09/27/16 13:00; Start 09/27/16 at 11:15 Ondansetron HCl (Zofran) 4 mg PRN Q6HRS PRN IV NAUESA, 1ST CHOICE Last administered on 09/28/16 23:43; Start 09/27/16 at 11:15 Prochlorperazine Edisylate (Compazine) 5 mg PRN Q6HRS PRN IV N/V, 2nd Choice, MR X1; Start 09/27/16 at 11:15 Morphine Sulfate 2 mg STK-MED ONCE .ROUTE Last administered on 09/27/16 11:39 ; Start 09/27/16 at 11:39; Stop 09/27/16 at 11:40; Status DC Amlodipine Besylate (Norvasc) 10 mg DAILY PO Last administered on 09/29/16 09: 42; Start 09/27/16 at 14:00 Labetalol HCl (Normodyne) 20 mg PRN Q6HRS PRN IVP HYPERTENSION, SEE COMMENTS Last administered on 09/29/16 04:07; Start 09/27/16 at 16:30 Temazepam (Restoril) 15 mg PRN QHS PRN PO INSOMNIA Last administered on 23:41; Start 09/28/16 at 23:30 Famotidine 20 mg 20 mg [id number] IVP Last administered on 09/29/16 09:41; Start at 09:15 Potassium Chloride/Sodium Chloride (KCl 20 Meq-0.45% Nacl) 1,000 ml @ 75 mls/ hr [id number] IV Last administered on 09/29/16 09:42; Start 09/29/16 at 09:15 Active Scripts Active Reported Multi-Vitamin Daily (Multivitamin) 1 Each Tablet 1 Each PO Vitals/I & O Vital Sign - Last 24 Hours 09/28/16 09/28/16 09/28/16 09/28/16 15:00 19:00 20:45 21:21 Temp 98.2 100.4 98.2 100.4 Pulse 99 99 Resp B/P 154/97 153/103 Pulse Ox 95 99 99 O2 Delivery Nasal Cannula Nasal Cannula Room Air Room Air O2 Flow Rate 2.0 2.0 09/28/16 09/29/16 09/29/16 09/29/16 23:35 03:09 04:07 07:00 Temp 101.1 97.9 98.8 101.1 97.9 98.8 Pulse 100 111 111 96 Resp 18 B/P 173/104 195/108 195/108 155/103 Pulse Ox 94 94 95 O2 Delivery Nasal Cannula Nasal Cannula Room Air O2 Flow Rate 2.0 2.0 09/29/16 09/29/16 09/29/16 08:00 09:42 11:00 Temp 99.0 99.0 Pulse 96 99 Resp 16 B/P 155/103 165/108 Pulse Ox 96 O2 Delivery Room Air Room Air Intake and Output 09/28/16 09/28/16 09/29/16 15:00 23:00 07:00 Intake Total 4919 ml Output Total 600 ml 825 ml 1650 ml Balance -600 ml -825 ml 3269 ml JOSHUA WRIGHT MD Sep 29, 2016 12:14
[2016-09-29 15:00] VITALS: BP 138/97
--- NOTE | 2016-09-29 18:45 | PATHOLOGY ---
PATHOLOGY REPORT * * * * * * * * FINAL DIAGNOSIS: Segment of distal ileum, cecum, and ascending colon with attached mesocolon, laparoscopic right colon resection: - Sessile tubular adenoma of cecum, measuring up to 5.0 cm in greatest dimension. - Small tubular adenoma adjacent to large sessile polyp. - Ten mesocolonic lymph nodes negative for tumor. - Adiposity of ileocecal valve. - Absence of appendix. - Healed enteric/enteric anastomosis of distal ileum. COMMENT: Sections of the cecal lesion reveal a large sessile tubular adenoma measuring up to 5.0 cm in greatest dimension. There is no high grade dysplasia or evidence of malignancy. There is an additional small tubular adenoma adjacent to the larger sessile polyp. (JPM:csd; d/t: 09/29/2016) REPORT ELECTRONICALLY SIGNED BY: Blayne Hoover M.D. DATE/TIME: 09/29/2016 17:13 * * * * * * * * GROSS PATHOLOGY: The specimen is received fresh for intraoperative consultation and is designated "right colon." This consists of a segment of distal ileum with contiguous cecum and ascending colon and attached mesocolon. The segment is stapled closed at both ends. The segment of distal ileum measures up to 10.0 cm in length and is focally dilated up to 4.1 cm in diameter. The cecum and ascending colon measure 13.5 cm in length. The appendix is absent. The serosa of the ileum is dark brown and hyperemic. The serosa of the cecum and ascending colon is pinkish brown and glistening. The attached mesocolon measures up to 10.0 cm in depth. The segment is opened along the antimesocolon. The ileal mucosa is yellowish green, transversely folded, and erythematous. There is a suggestion of an anastomotosis line within the distal ileum approximately 7.5 cm from the proximal margin of resection. The ileocecal valve is pink-yellow and erythematous. There is a sessile irregular, slightly raised pinkish brown polyp of the cecum just distal to the ileocecal valve. This measures up to 5.0 cm in length and 1.6 cm in width. Adjacent to this, is a slightly raised pink possible polyp measuring up to 0.5 cm. This is approximately 0.7 cm from the larger sessile lesion. The remainder of the cecal mucosa shows focal hemorrhage. The ascending colon mucosa is yellowish swift and transversely folded. There are no additional polyps or tumor masses. There are no enlarged nodes within the attached mesocolon. (JPM:mgr; d/t: 09/27/16) After overnight formalin fixation, the specimen is re-examined. The second smaller polyp is not definitively identified. The larger polyp is located 8.7 cm from the proximal/ileal margin and 8.3 cm from the distal/colonic margin. The serosa corresponding to the larger polyp is inked black. The polyp is serially sectioned. It is grossly confined to the mucosa and is located approximately 0.7 cm from the free/inked serosal surface. The remaining colonic and ileal mucosa is grossly unremarkable. Dissection of the mesenteric fat reveals multiple pink-swift lymph nodes ranging from 0.2-0.9 cm in greatest dimension. Heel Varnisher sections are submitted as follows: A1 proximal/terminal ileal margin, en face A2 distal/colonic margin, en face A3 possible ileal anastomosis A4 larger polyp to include ileocecal valve A5-A9 remainder of larger polyp A10 possible smaller polyp A11-A12 multiple intact and possible lymph nodes (TTL; 09/28/2016) INTRAOPERATIVE CONSULTATION (Jude Hoover M.D.) Distal ileum, cecum, and ascending colon with attached mesocolon, laparoscopic right colon resection: - Large sessile polyp and small polyp of cecum. The results are displayed to Dr. Skaggs in the operating room. The specimen is fixed in formalin prior to additional sectioning. (JPM:mgr; d/t: 09/27/16) Testing performed by [facility] at [address] [address] INITIAL CPT CODE(S): A; 91076, 53625 Professional services performed by [facility] at [address] [address] Technical services performed by [facility] at [address] [place] [address], [address], [place] [address]. SPECIMEN(S) RECEIVED: A.Right colon CLINICAL HISTORY: Tubular adenoma of colon PATIENT: GALINA [place] /AGE: 804/28/1960 (Age: 56) PATIENT #: [id number] ALT CASE #: SPECIMEN COLLECTION DATE: 09/27/2016 SPECIMEN RECEIVED DATE: 09/27/2016 [facility] - [id number] [address] - PHONE: [phone] * * * END OF REPORT * * *
[2016-09-29 19:25] VITALS: BP 150/95
[2016-09-29] MEDS: ENOXAPARIN 40 MG/0.4 ML DISP.SYRIN. SQ SCH (20:58)
[2016-09-29 23:30] VITALS: BP 137/98
[2016-09-30 03:21] VITALS: BP 156/104
[2016-09-30 05:12] LABS: BASO # 0.1 x10^3/uL (0.0-0.2); BASO % 1 % (0-3); EOS % 1 % (0-3); HEMATOCRIT 48.6 % (39.0-53.0); HEMOGLOBIN 16.1 g/dL (13.0-17.5); LYMPH # 2.5 x10^3/uL (1.0-4.8); LYMPH % 22 % (24-48); MEAN CORPUSCULAR HEMOGLOBIN 30 pg (25-35); MEAN CORPUSCULAR HGB CONC 33 g/dL (31-37); MEAN CORPUSCULAR VOLUME 89 fL (79-100); MONO % 9 % (0-9); NEUT % 68 % (31-73); PLATELET COUNT 222 x10^3/uL (140-400); RED BLOOD COUNT 5.47 x10^6/uL (4.30-5.70); RED CELL DISTRIBUTION WIDTH 12.9 % (11.5-14.5)
[2016-09-30 05:58] LABS: CREATININE 1.1 mg/dL (0.7-1.3); GFR 69.5; POTASSIUM 4.3 mmol/L (3.5-5.1)
[2016-09-30 07:00] VITALS: BP 128/91
[2016-09-30] MEDS: FAMOTIDINE 20 MG/2 ML VIAL IVP SCH ×2 (09:00→12:23)
--- NOTE | 2016-09-30 09:06 | PDOC ---
PROGRESS NOTES Chief Complaint Chief Complaint - Tubular adenoma of colon s/p right hemicolectomy on 09/27/16 - Accelerated HTN - Constipation, resolved - Post-operative surgical pain - GERD - Insomnia - DVT ppx History of Present Illness History of Present Illness 56 year old male examined while lying in bed. States he has been up walking for about 1 hour this morning and was feeling well enough to shower. Reports he has had 5 bowel movements since last exam and is "past ready to eat." Restated that he was very hungry and wants to eat as soon as possible. Vitals Vitals Vital Signs Date Time Temp Pulse Resp B/P Pulse Ox O2 Delivery O2 Flow Rate FiO2 09/30/16 08:00 Room Air 09/30/16 07:00 97.9 96 18 128/91 96 97.9 Physical Exam General: Alert, Oriented X3, Cooperative, No acute distress Heart: Normal S1, Normal S2, No murmurs, Other (Slightly tachycardic) Lungs: Clear, Other (No wheezes or crackles) Abdomen: Normal bowel sounds, Soft (mildly distended), Other (Surgical incisions clean, no obvious infection; Bandages wet from shower) Extremities: No clubbing, No cyanosis, No edema Skin: No rashes, No breakdown, Other (See abdomen above) Labs LABS Laboratory Tests Test 09/30/16 04:20 White Blood Count 11.0x10^3/uL (4.0-11.0) Red Blood Count 5.47x10^6/uL (4.30-5.70) Hemoglobin 16.1g/dL (13.0-17.5) Hematocrit 48.6% (39.0-53.0) Mean Corpuscular Volume 89fL (79-100) Mean Corpuscular Hemoglobin 30pg (25-35) Mean Corpuscular Hemoglobin Concent 33g/dL (31-37) Red Cell Distribution Width 12.9% (11.5-14.5) Platelet Count 222x10^3/uL (140-400) Neutrophils (%) (Auto) 68% (31-73) Lymphocytes (%) (Auto) 22% (24-48) Monocytes (%) (Auto) 9% (0-9) Eosinophils (%) (Auto) 1% (0-3) Basophils (%) (Auto) 1% (0-3) Neutrophils # (Auto) 7.4x10^3uL (1.8-7.7) Lymphocytes # (Auto) 2.5x10^3/uL (1.0-4.8) Monocytes # (Auto) 0.9x10^3/uL (0.0-1.1) Eosinophils # (Auto) 0.1x10^3/uL (0.0-0.7) Basophils # (Auto) 0.1x10^3/uL (0.0-0.2) Sodium Level 140mmol/L (136-145) Potassium Level 4.3mmol/L (3.5-5.1) Chloride Level 103mmol/L (98-107) Carbon Dioxide Level 27mmol/L (21-32) Anion Gap 10 (6-14) Blood Urea Nitrogen 16mg/dL (8-26) Creatinine 1.1mg/dL (0.7-1.3) Estimated GFR (Cockcroft-Gault) 69.5 Glucose Level 87mg/dL (70-99) Calcium Level 9.0mg/dL (8.5-10.1) Review of Systems Review of Systems Reports several bowel movements, positive for flatus Denies fevers/chills Denies nausea/vomiting Hungry Assessment and Plan Assessmemt and Plan Assessment: - Tubular adenoma of colon s/p right hemicolectomy on 09/27/16 - Accelerated HTN - Constipation, resolved - Post-operative surgical pain - GERD - Insomnia - DVT ppx Plan: - Remains hypertensive. Ordered Lisinopril 10mg PO QD. - Rx for Norvasc and Lisinopril left with nursing should patient be discharged - Currently NPO but has had bowel movements. Advance diet as tolerated when ok with surgery - Continue pain control - Monitor bowel movements and treat constipation symptomatically - Continue Pepcid for heart burn - Continue Restoril PRN for insomnia - Discharge per surgery. Will need to follow up with PCP regarding HTN. - Recheck labs in a.m. - PT/OT as tolerated - Appreciate being consulted by surgery Problems: Comment Review of Relevant I have reviewed the following items bandar (where applicable) has been applied. Labs Laboratory Tests Test 09/30/16 04:20 White Blood Count 11.0x10^3/uL (4.0-11.0) Red Blood Count 5.47x10^6/uL (4.30-5.70) Hemoglobin 16.1g/dL (13.0-17.5) Hematocrit 48.6% (39.0-53.0) Mean Corpuscular Volume 89fL (79-100) Mean Corpuscular Hemoglobin 30pg (25-35) Mean Corpuscular Hemoglobin Concent 33g/dL (31-37) Red Cell Distribution Width 12.9% (11.5-14.5) Platelet Count 222x10^3/uL (140-400) Neutrophils (%) (Auto) 68% (31-73) Lymphocytes (%) (Auto) 22% (24-48) Monocytes (%) (Auto) 9% (0-9) Eosinophils (%) (Auto) 1% (0-3) Basophils (%) (Auto) 1% (0-3) Neutrophils # (Auto) 7.4x10^3uL (1.8-7.7) Lymphocytes # (Auto) 2.5x10^3/uL (1.0-4.8) Monocytes # (Auto) 0.9x10^3/uL (0.0-1.1) Eosinophils # (Auto) 0.1x10^3/uL (0.0-0.7) Basophils # (Auto) 0.1x10^3/uL (0.0-0.2) Sodium Level 140mmol/L (136-145) Potassium Level 4.3mmol/L (3.5-5.1) Chloride Level 103mmol/L (98-107) Carbon Dioxide Level 27mmol/L (21-32) Anion Gap 10 (6-14) Blood Urea Nitrogen 16mg/dL (8-26) Creatinine 1.1mg/dL (0.7-1.3) Estimated GFR (Cockcroft-Gault) 69.5 Glucose Level 87mg/dL (70-99) Calcium Level 9.0mg/dL (8.5-10.1) Laboratory Tests Test 09/30/16 04:20 White Blood Count 11.0x10^3/uL (4.0-11.0) Red Blood Count 5.47x10^6/uL (4.30-5.70) Hemoglobin 16.1g/dL (13.0-17.5) Hematocrit 48.6% (39.0-53.0) Mean Corpuscular Volume 89fL (79-100) Mean Corpuscular Hemoglobin 30pg (25-35) Mean Corpuscular Hemoglobin Concent 33g/dL (31-37) Red Cell Distribution Width 12.9% (11.5-14.5) Platelet Count 222x10^3/uL (140-400) Neutrophils (%) (Auto) 68% (31-73) Lymphocytes (%) (Auto) 22% (24-48) Monocytes (%) (Auto) 9% (0-9) Eosinophils (%) (Auto) 1% (0-3) Basophils (%) (Auto) 1% (0-3) Neutrophils # (Auto) 7.4x10^3uL (1.8-7.7) Lymphocytes # (Auto) 2.5x10^3/uL (1.0-4.8) Monocytes # (Auto) 0.9x10^3/uL (0.0-1.1) Eosinophils # (Auto) 0.1x10^3/uL (0.0-0.7) Basophils # (Auto) 0.1x10^3/uL (0.0-0.2) Sodium Level 140mmol/L (136-145) Potassium Level 4.3mmol/L (3.5-5.1) Chloride Level 103mmol/L (98-107) Carbon Dioxide Level 27mmol/L (21-32) Anion Gap 10 (6-14) Blood Urea Nitrogen 16mg/dL (8-26) Creatinine 1.1mg/dL (0.7-1.3) Estimated GFR (Cockcroft-Gault) 69.5 Glucose Level 87mg/dL (70-99) Calcium Level 9.0mg/dL (8.5-10.1) Medications Current Medications Midazolam HCl (Versed) 2 mg PRN 1X PRN IV PRIOR TO PROCEDURE; Start 09/27/16 at 06:00; Stop 09/28/16 at 05:59; Status DC Fentanyl Citrate (Fentanyl 2ml Vial) 25 mcg PRN Q5MIN PRN IV X 2 DOSES FOR PAIN ; Start 09/27/16 at 06:00; Stop 09/28/16 at 05:59; Status DC Fentanyl Citrate 50 mcg 50 mcg PRN Q5MIN PRN IV X 2 DOSES FOR PAIN Last administered on 09/27/16t 12:11; Start 09/27/16 at 06:00; Stop 09/28/16 at 05:59 ; Status DC Lactated Ringer's (Iv Lactated Ringers) 1,000 ml @ 125 mls/hr Q8H IV Last administered on 09/27/16t 06:54; Start 09/27/16 at 06:00; Stop 09/27/16 at 06:02 ; Status DC Lidocaine HCl 2 ml 1X PRN PRN ID IV START; Start 09/27/16 at 06:00; Stop at 05:59; Status DC Fentanyl Citrate (Fentanyl 5ml Vial) 250 mcg STK-MED ONCE .ROUTE ; Start at 07:03; Stop 09/27/16 at 07:04; Status DC Midazolam HCl (Versed) 2 mg STK-MED ONCE .ROUTE ; Start 09/27/16 at 07:04; Stop 09/27/16 at 07:05; Status DC Ondansetron HCl 4 mg 4 mg STK-MED ONCE .ROUTE ; Start 09/27/16 at 07:04; Stop at 07:05; Status DC Propofol (Diprivan) 20 ml @ As Directed STK-MED ONCE IV ; Start 09/27/16 at 07: 04; Stop 09/27/16 at 07:05; Status DC Lidocaine HCl (Lidocaine Pf 2% Vial) 5 ml STK-MED ONCE .ROUTE ; Start 09/27/16 at 07:04; Stop 09/27/16 at 07:05; Status DC Dexamethasone Sodium Phosphate (Decadron) 20 mg STK-MED ONCE .ROUTE ; Start at 07:04; Stop 09/27/16 at 07:05; Status DC Famotidine (Pepcid) 20 mg STK-MED ONCE .ROUTE ; Start 09/27/16 at 07:04; Stop at 07:05; Status DC Rocuronium [place] 50 mg 50 mg STK-MED ONCE .ROUTE ; Start 09/27/16 at 07:07; Stop 09/27/16 at 07:08; Status DC Cefazolin Sodium/ Dextrose (Ancef 2gm Premix) 50 ml @ As Directed STK-MED ONCE IV Last administered on 09/27/16 07:27; Start 09/27/16 at 07:11; Stop at 07:12; Status DC Sevoflurane (Ultane) 60 ml STK-MED ONCE IH ; Start 09/27/16 at 08:05; Stop 09/27 at 08:06; Status DC Phenylephrine HCl 1 mg STK-MED ONCE IV ; Start 09/27/16 at 08:05; Stop 09/27/16 at 08:06; Status DC Glycopyrrolate (Robinul) 1 mg STK-MED ONCE .ROUTE ; Start 09/27/16 at 09:22; Stop 09/27/16 at 09:23; Status DC Neostigmine Methylsulfate 5 mg STK-MED ONCE .ROUTE ; Start 09/27/16 at 09:22; Stop 09/27/16 at 09:23; Status DC Fentanyl Citrate (Fentanyl 2ml Vial) 100 mcg STK-MED ONCE .ROUTE ; Start at 10:04; Stop 09/27/16 at 10:05; Status DC Enoxaparin Sodium (Lovenox 40mg Syringe) 40 mg Q24H SQ Last administered on 20:58; Start 09/27/16 at 22:00 Sodium Chloride 3 ml 3 ml QSHIFT PRN IV AFTER MEDS AND BLOOD DRAWS; Start 09/27 at 11:15 Potassium Chloride/Dextrose/ Sod Cl 1,000 ml @ 125 mls/hr Q8H IV Last administered on 09/29/16 04:30; Start 09/27/16 at 12:30; Stop 09/29/16 at 09:08 ; Status DC Hydromorphone HCl (Dilaudid Standard INTERNAL MEDICINE PHYSICIAN) 30 ml @ 0 mls/hr CONT PRN PRN IV PROTOCOL Last administered on 09/27/16 13:00; Start 09/27/16 at 11:15 Ondansetron HCl (Zofran) 4 mg PRN Q6HRS PRN IV NAUESA, 1ST CHOICE Last administered on 09/28/16 23:43; Start 09/27/16 at 11:15 Prochlorperazine Edisylate (Compazine) 5 mg PRN Q6HRS PRN IV N/V, 2nd Choice, MR X1; Start 09/27/16 at 11:15 Morphine Sulfate 2 mg STK-MED ONCE .ROUTE Last administered on 09/27/16 11:39 ; Start 09/27/16 at 11:39; Stop 09/27/16 at 11:40; Status DC Amlodipine Besylate (Norvasc) 10 mg DAILY PO Last administered on 09/29/16 09: 42; Start 09/27/16 at 14:00 Labetalol HCl (Normodyne) 20 mg PRN Q6HRS PRN IVP HYPERTENSION, SEE COMMENTS Last administered on 09/29/16 04:07; Start 09/27/16 at 16:30 Temazepam (Restoril) 15 mg PRN QHS PRN PO INSOMNIA Last administered on 23:41; Start 09/28/16 at 23:30 Famotidine 20 mg 20 mg [id number] IVP Last administered on 09/29/16 14:53; Start at 09:15 Potassium Chloride/Sodium Chloride (KCl 20 Meq-0.45% Nacl) 1,000 ml @ 75 mls/ hr [id number] IV Last administered on 09/29/16 23:27; Start 09/29/16 at 09:15 Lisinopril (Prinivil) 10 mg DAILY PO ; Start 09/30/16 at 09:00 Active Scripts Active Reported Multi-Vitamin Daily (Multivitamin) 1 Each Tablet 1 Each PO Vitals/I & O Vital Sign - Last 24 Hours 09/29/16 09/29/16 09/29/16 09/29/16 09:42 11:00 15:00 19:00 Temp 99.0 98.8 99.0 98.8 Pulse 96 99 101 Resp 16 B/P 155/103 165/108 138/97 Pulse Ox 96 95 O2 Delivery Room Air Room Air Room Air 09/29/16 09/29/16 09/30/16 09/30/16 19:25 23:30 03:21 07:00 Temp 99.5 98.7 99.0 97.9 99.5 98.7 99.0 97.9 Pulse 101 107 98 96 Resp B/P 150/95 137/98 156/104 128/91 Pulse Ox 96 94 96 96 O2 Delivery Room Air Room Air Room Air Room Air 09/30/16 08:00 O2 Delivery Room Air Intake and Output 09/29/16 09/29/16 09/30/16 15:00 23:00 07:00 Intake Total 700 ml 200 ml 1100 ml Output Total 400 ml 650 ml 600 ml Balance 300 ml -450 ml 500 ml ERIS SOW III, DO Sep 30, 2016 09:06
[2016-09-30] MEDS: AMLODIPINE BESYLATE 10 MG TABLET PO SCH (09:21)
[2016-09-30] MEDS: LISINOPRIL 10 MG TABLET PO SCH (09:22)
[2016-09-30 11:00] VITALS: BP 121/79
[2016-09-30] MEDS: POTASSIUM CL 20MEQ-0.45% NACL 1,000 ML IV SCH (11:55)
--- NOTE | 2016-09-30 13:56 | PDOC ---
CALLIE VERDIN MAT MAN 09/30/16 1356: SURGICAL PROGRESS NOTE Subjective doing well tolerating diet ambulating + flatus Vital Signs Vital Signs Date Time Temp Pulse Resp B/P Pulse Ox O2 Delivery O2 Flow Rate FiO2 09/30/16 11:00 98.8 104 18 121/79 94 Room Air 98.8 I&O Intake and Output 09/30/16 07:00 Intake Total 2000 ml Output Total 1650 ml Balance 350 ml Intake Oral 300 ml IV Total 1700 ml Output Urine Total 1650 ml General: Alert, Oriented X3, Cooperative, No acute distress Abdomen: Soft, Other (incision dressing dry ) Labs Laboratory Tests Test 09/30/16 04:20 White Blood Count 11.0x10^3/uL (4.0-11.0) Red Blood Count 5.47x10^6/uL (4.30-5.70) Hemoglobin 16.1g/dL (13.0-17.5) Hematocrit 48.6% (39.0-53.0) Mean Corpuscular Volume 89fL (79-100) Mean Corpuscular Hemoglobin 30pg (25-35) Mean Corpuscular Hemoglobin Concent 33g/dL (31-37) Red Cell Distribution Width 12.9% (11.5-14.5) Platelet Count 222x10^3/uL (140-400) Neutrophils (%) (Auto) 68% (31-73) Lymphocytes (%) (Auto) 22% (24-48) Monocytes (%) (Auto) 9% (0-9) Eosinophils (%) (Auto) 1% (0-3) Basophils (%) (Auto) 1% (0-3) Neutrophils # (Auto) 7.4x10^3uL (1.8-7.7) Lymphocytes # (Auto) 2.5x10^3/uL (1.0-4.8) Monocytes # (Auto) 0.9x10^3/uL (0.0-1.1) Eosinophils # (Auto) 0.1x10^3/uL (0.0-0.7) Basophils # (Auto) 0.1x10^3/uL (0.0-0.2) Sodium Level 140mmol/L (136-145) Potassium Level 4.3mmol/L (3.5-5.1) Chloride Level 103mmol/L (98-107) Carbon Dioxide Level 27mmol/L (21-32) Anion Gap 10 (6-14) Blood Urea Nitrogen 16mg/dL (8-26) Creatinine 1.1mg/dL (0.7-1.3) Estimated GFR (Cockcroft-Gault) 69.5 Glucose Level 87mg/dL (70-99) Calcium Level 9.0mg/dL (8.5-10.1) Laboratory Tests Test 09/30/16 04:20 White Blood Count 11.0x10^3/uL (4.0-11.0) Red Blood Count 5.47x10^6/uL (4.30-5.70) Hemoglobin 16.1g/dL (13.0-17.5) Hematocrit 48.6% (39.0-53.0) Mean Corpuscular Volume 89fL (79-100) Mean Corpuscular Hemoglobin 30pg (25-35) Mean Corpuscular Hemoglobin Concent 33g/dL (31-37) Red Cell Distribution Width 12.9% (11.5-14.5) Platelet Count 222x10^3/uL (140-400) Neutrophils (%) (Auto) 68% (31-73) Lymphocytes (%) (Auto) 22% (24-48) Monocytes (%) (Auto) 9% (0-9) Eosinophils (%) (Auto) 1% (0-3) Basophils (%) (Auto) 1% (0-3) Neutrophils # (Auto) 7.4x10^3uL (1.8-7.7) Lymphocytes # (Auto) 2.5x10^3/uL (1.0-4.8) Monocytes # (Auto) 0.9x10^3/uL (0.0-1.1) Eosinophils # (Auto) 0.1x10^3/uL (0.0-0.7) Basophils # (Auto) 0.1x10^3/uL (0.0-0.2) Sodium Level 140mmol/L (136-145) Potassium Level 4.3mmol/L (3.5-5.1) Chloride Level 103mmol/L (98-107) Carbon Dioxide Level 27mmol/L (21-32) Anion Gap 10 (6-14) Blood Urea Nitrogen 16mg/dL (8-26) Creatinine 1.1mg/dL (0.7-1.3) Estimated GFR (Cockcroft-Gault) 69.5 Glucose Level 87mg/dL (70-99) Calcium Level 9.0mg/dL (8.5-10.1) Problem List Problems Medical Problems: (1) Tubular adenoma of colon Status: Acute Assessment/Plan s/p lap right colon advance diet Problems: JOSHUA WRIGHT MD 09/30/16 1400: SURGICAL PROGRESS NOTE Assessment/Plan Agree with above Problems: CALLIE VERDIN APRN Sep 30, 2016 13:56 JOSHUA WRIGHT MD Sep 30, 2016 14:00
[2016-09-30 15:00] VITALS: BP 100/66
[2016-09-30 19:00] VITALS: BP 113/75
[2016-09-30] MEDS: ENOXAPARIN 40 MG/0.4 ML DISP.SYRIN. SQ SCH (22:31)
[2016-09-30 23:00] VITALS: BP 106/66
[2016-10-01] MEDS: POTASSIUM CL 20MEQ-0.45% NACL 1,000 ML IV SCH ×2 (01:15→14:35)
[2016-10-01 03:00] VITALS: BP 107/60
[2016-10-01 05:08] LABS: BASO % 0 % (0-3); EOS % 2 % (0-3); HEMATOCRIT 46.3 % (39.0-53.0); HEMOGLOBIN 15.3 g/dL (13.0-17.5); LYMPH % 17 % (24-48); MEAN CORPUSCULAR HEMOGLOBIN 30 pg (25-35); MEAN CORPUSCULAR HGB CONC 33 g/dL (31-37); MEAN CORPUSCULAR VOLUME 89 fL (79-100); MONO % 8 % (0-9); NEUT % 72 % (31-73); PLATELET COUNT 250 x10^3/uL (140-400); RED BLOOD COUNT 5.18 x10^6/uL (4.30-5.70); RED CELL DISTRIBUTION WIDTH 12.8 % (11.5-14.5)
[2016-10-01 05:29] LABS: CALCIUM 9.2 mg/dL (8.5-10.1); GFR 77.6; POTASSIUM 3.8 mmol/L (3.5-5.1)
[2016-10-01 07:00] VITALS: BP 96/66
[2016-10-01] MEDS: LISINOPRIL 10 MG TABLET PO SCH (09:00)
[2016-10-01] MEDS: AMLODIPINE BESYLATE 10 MG TABLET PO SCH (09:00)
[2016-10-01] MEDS: FAMOTIDINE 20 MG/2 ML VIAL IVP SCH (09:00)
[2016-10-01 10:44] VITALS: BP 93/67
--- NOTE | 2016-10-01 11:48 | PDOC ---
PROGRESS NOTES Chief Complaint Chief Complaint - Tubular adenoma of colon s/p right hemicolectomy on 09/27/16 - Accelerated HTN - Constipation, resolved - Post-operative surgical pain - GERD - Insomnia - DVT ppx History of Present Illness History of Present Illness 56 year old male being followed s/p right hemicolectomy on 09/27/16. States he has been able to walk more today and take a shower. He has been tolerating his diet well, stating he had no problems with the malt-o-meal this morning or crackers and sprite that he had last night. He is having flatus and bowel movements without pain. Vitals Vitals Vital Signs Date Time Temp Pulse Resp B/P Pulse Ox O2 Delivery O2 Flow Rate FiO2 10/01/16 10:44 97.5 94 16 93/67 96 Room Air 97.5 Physical Exam General: Alert, Oriented X3, Cooperative, No acute distress Heart: Normal S1, Normal S2, No murmurs, Other (Slightly tachycardic) Lungs: Clear, Other (No wheezes or crackles) Abdomen: Soft, Other (Incision dressing intact) Extremities: No clubbing, No cyanosis, No edema Skin: No rashes, No breakdown, Other (See abdomen above) Labs LABS Laboratory Tests Test 10/01/16 04:30 White Blood Count 12.0x10^3/uL (4.0-11.0) Red Blood Count 5.18x10^6/uL (4.30-5.70) Hemoglobin 15.3g/dL (13.0-17.5) Hematocrit 46.3% (39.0-53.0) Mean Corpuscular Volume 89fL (79-100) Mean Corpuscular Hemoglobin 30pg (25-35) Mean Corpuscular Hemoglobin Concent 33g/dL (31-37) Red Cell Distribution Width 12.8% (11.5-14.5) Platelet Count 250x10^3/uL (140-400) Neutrophils (%) (Auto) 72% (31-73) Lymphocytes (%) (Auto) 17% (24-48) Monocytes (%) (Auto) 8% (0-9) Eosinophils (%) (Auto) 2% (0-3) Basophils (%) (Auto) 0% (0-3) Neutrophils # (Auto) 8.6x10^3uL (1.8-7.7) Lymphocytes # (Auto) 2.0x10^3/uL (1.0-4.8) Monocytes # (Auto) 1.0x10^3/uL (0.0-1.1) Eosinophils # (Auto) 0.2x10^3/uL (0.0-0.7) Basophils # (Auto) 0.0x10^3/uL (0.0-0.2) Sodium Level 138mmol/L (136-145) Potassium Level 3.8mmol/L (3.5-5.1) Chloride Level 105mmol/L (98-107) Carbon Dioxide Level 23mmol/L (21-32) Anion Gap 10 (6-14) Blood Urea Nitrogen 24mg/dL (8-26) Creatinine 1.0mg/dL (0.7-1.3) Estimated GFR (Cockcroft-Gault) 77.6 Glucose Level 112mg/dL (70-99) Calcium Level 9.2mg/dL (8.5-10.1) Review of Systems Review of Systems Denies constipation Abdominal pain well controlled Denies fevers/chills Assessment and Plan Assessmemt and Plan Assessment: - Tubular adenoma of colon s/p right hemicolectomy on 09/27/16 - Accelerated HTN - Constipation, resolved - Post-operative surgical pain - GERD - Insomnia - DVT ppx Plan: - Approaching baseline. OK with discharge from internal medicine standpoint. Will need to follow up with PCP regarding HTN in 1 week. - HTN better controlled today after adding Lisinopril - Rx for Norvasc and Lisinopril left with nursing should patient be discharged - Advance diet as tolerated when ok with surgery - Continue pain control - Monitor bowel movements and treat constipation symptomatically - Recheck labs in a.m. - PT/OT as tolerated - Appreciate being consulted by surgery Problems: Comment Review of Relevant I have reviewed the following items bandar (where applicable) has been applied. Labs Laboratory Tests Test 09/30/16 04:20 10/01/16 04:30 White Blood Count 11.0x10^3/uL (4.0-11.0) 12.0x10^3/uL (4.0-11.0) Red Blood Count 5.47x10^6/uL (4.30-5.70) 5.18x10^6/uL (4.30-5.70) Hemoglobin 16.1g/dL (13.0-17.5) 15.3g/dL (13.0-17.5) Hematocrit 48.6% (39.0-53.0) 46.3% (39.0-53.0) Mean Corpuscular Volume 89fL (79-100) 89fL (79-100) Mean Corpuscular Hemoglobin 30pg (25-35) 30pg (25-35) Mean Corpuscular Hemoglobin Concent 33g/dL (31-37) 33g/dL (31-37) Red Cell Distribution Width 12.9% (11.5-14.5) 12.8% (11.5-14.5) Platelet Count 222x10^3/uL (140-400) 250x10^3/uL (140-400) Neutrophils (%) (Auto) 68% (31-73) 72% (31-73) Lymphocytes (%) (Auto) 22% (24-48) 17% (24-48) Monocytes (%) (Auto) 9% (0-9) 8% (0-9) Eosinophils (%) (Auto) 1% (0-3) 2% (0-3) Basophils (%) (Auto) 1% (0-3) 0% (0-3) Neutrophils # (Auto) 7.4x10^3uL (1.8-7.7) 8.6x10^3uL (1.8-7.7) Lymphocytes # (Auto) 2.5x10^3/uL (1.0-4.8) 2.0x10^3/uL (1.0-4.8) Monocytes # (Auto) 0.9x10^3/uL (0.0-1.1) 1.0x10^3/uL (0.0-1.1) Eosinophils # (Auto) 0.1x10^3/uL (0.0-0.7) 0.2x10^3/uL (0.0-0.7) Basophils # (Auto) 0.1x10^3/uL (0.0-0.2) 0.0x10^3/uL (0.0-0.2) Sodium Level 140mmol/L (136-145) 138mmol/L (136-145) Potassium Level 4.3mmol/L (3.5-5.1) 3.8mmol/L (3.5-5.1) Chloride Level 103mmol/L (98-107) 105mmol/L (98-107) Carbon Dioxide Level 27mmol/L (21-32) 23mmol/L (21-32) Anion Gap 10 (6-14) 10 (6-14) Blood Urea Nitrogen 16mg/dL (8-26) 24mg/dL (8-26) Creatinine 1.1mg/dL (0.7-1.3) 1.0mg/dL (0.7-1.3) Estimated GFR (Cockcroft-Gault) 69.5 77.6 Glucose Level 87mg/dL (70-99) 112mg/dL (70-99) Calcium Level 9.0mg/dL (8.5-10.1) 9.2mg/dL (8.5-10.1) Laboratory Tests Test 10/01/16 04:30 White Blood Count 12.0x10^3/uL (4.0-11.0) Red Blood Count 5.18x10^6/uL (4.30-5.70) Hemoglobin 15.3g/dL (13.0-17.5) Hematocrit 46.3% (39.0-53.0) Mean Corpuscular Volume 89fL (79-100) Mean Corpuscular Hemoglobin 30pg (25-35) Mean Corpuscular Hemoglobin Concent 33g/dL (31-37) Red Cell Distribution Width 12.8% (11.5-14.5) Platelet Count 250x10^3/uL (140-400) Neutrophils (%) (Auto) 72% (31-73) Lymphocytes (%) (Auto) 17% (24-48) Monocytes (%) (Auto) 8% (0-9) Eosinophils (%) (Auto) 2% (0-3) Basophils (%) (Auto) 0% (0-3) Neutrophils # (Auto) 8.6x10^3uL (1.8-7.7) Lymphocytes # (Auto) 2.0x10^3/uL (1.0-4.8) Monocytes # (Auto) 1.0x10^3/uL (0.0-1.1) Eosinophils # (Auto) 0.2x10^3/uL (0.0-0.7) Basophils # (Auto) 0.0x10^3/uL (0.0-0.2) Sodium Level 138mmol/L (136-145) Potassium Level 3.8mmol/L (3.5-5.1) Chloride Level 105mmol/L (98-107) Carbon Dioxide Level 23mmol/L (21-32) Anion Gap 10 (6-14) Blood Urea Nitrogen 24mg/dL (8-26) Creatinine 1.0mg/dL (0.7-1.3) Estimated GFR (Cockcroft-Gault) 77.6 Glucose Level 112mg/dL (70-99) Calcium Level 9.2mg/dL (8.5-10.1) Medications Current Medications Midazolam HCl (Versed) 2 mg PRN 1X PRN IV PRIOR TO PROCEDURE; Start 09/27/16 at 06:00; Stop 09/28/16 at 05:59; Status DC Fentanyl Citrate (Fentanyl 2ml Vial) 25 mcg PRN Q5MIN PRN IV X 2 DOSES FOR PAIN ; Start 09/27/16 at 06:00; Stop 09/28/16 at 05:59; Status DC Fentanyl Citrate 50 mcg 50 mcg PRN Q5MIN PRN IV X 2 DOSES FOR PAIN Last administered on 09/27/16t 12:11; Start 09/27/16 at 06:00; Stop 09/28/16 at 05:59 ; Status DC Lactated Ringer's (Iv Lactated Ringers) 1,000 ml @ 125 mls/hr Q8H IV Last administered on 09/27/16 06:54; Start 09/27/16 at 06:00; Stop 09/27/16 at 06:02 ; Status DC Lidocaine HCl 2 ml 1X PRN PRN ID IV START; Start 09/27/16 at 06:00; Stop at 05:59; Status DC Fentanyl Citrate (Fentanyl 5ml Vial) 250 mcg STK-MED ONCE .ROUTE ; Start at 07:03; Stop 09/27/16 at 07:04; Status DC Midazolam HCl (Versed) 2 mg STK-MED ONCE .ROUTE ; Start 09/27/16 at 07:04; Stop 09/27/16 at 07:05; Status DC Ondansetron HCl 4 mg 4 mg STK-MED ONCE .ROUTE ; Start 09/27/16 at 07:04; Stop at 07:05; Status DC Propofol (Diprivan) 20 ml @ As Directed STK-MED ONCE IV ; Start 09/27/16 at 07: 04; Stop 09/27/16 at 07:05; Status DC Lidocaine HCl (Lidocaine Pf 2% Vial) 5 ml STK-MED ONCE .ROUTE ; Start 09/27/16 at 07:04; Stop 09/27/16 at 07:05; Status DC Dexamethasone Sodium Phosphate (Decadron) 20 mg STK-MED ONCE .ROUTE ; Start at 07:04; Stop 09/27/16 at 07:05; Status DC Famotidine (Pepcid) 20 mg STK-MED ONCE .ROUTE ; Start 09/27/16 at 07:04; Stop at 07:05; Status DC Rocuronium [place] 50 mg 50 mg STK-MED ONCE .ROUTE ; Start 09/27/16 at 07:07; Stop 09/27/16 at 07:08; Status DC Cefazolin Sodium/ Dextrose (Ancef 2gm Premix) 50 ml @ As Directed STK-MED ONCE IV Last administered on 09/27/16t 07:27; Start 09/27/16 at 07:11; Stop at 07:12; Status DC Sevoflurane (Ultane) 60 ml STK-MED ONCE IH ; Start 09/27/16 at 08:05; Stop 09/27 at 08:06; Status DC Phenylephrine HCl 1 mg STK-MED ONCE IV ; Start 09/27/16 at 08:05; Stop 09/27/16 at 08:06; Status DC Glycopyrrolate (Robinul) 1 mg STK-MED ONCE .ROUTE ; Start 09/27/16 at 09:22; Stop 09/27/16 at 09:23; Status DC Neostigmine Methylsulfate 5 mg STK-MED ONCE .ROUTE ; Start 09/27/16 at 09:22; Stop 09/27/16 at 09:23; Status DC Fentanyl Citrate (Fentanyl 2ml Vial) 100 mcg STK-MED ONCE .ROUTE ; Start at 10:04; Stop 09/27/16 at 10:05; Status DC Enoxaparin Sodium (Lovenox 40mg Syringe) 40 mg Q24H SQ Last administered on 22:31; Start 09/27/16 at 22:00 Sodium Chloride 3 ml 3 ml QSHIFT PRN IV AFTER MEDS AND BLOOD DRAWS; Start 09/27 at 11:15 Potassium Chloride/Dextrose/ Sod Cl 1,000 ml @ 125 mls/hr Q8H IV Last administered on 09/29/16 04:30; Start 09/27/16 at 12:30; Stop 09/29/16 at 09:08 ; Status DC Hydromorphone HCl (Dilaudid Standard [employer]) 30 ml @ 0 mls/hr CONT PRN PRN IV PROTOCOL Last administered on 09/27/16 13:00; Start 09/27/16 at 11:15 Ondansetron HCl (Zofran) 4 mg PRN Q6HRS PRN IV NAUESA, 1ST CHOICE Last administered on 09/28/16 23:43; Start 09/27/16 at 11:15 Prochlorperazine Edisylate (Compazine) 5 mg PRN Q6HRS PRN IV N/V, 2nd Choice, MR X1; Start 09/27/16 at 11:15 Morphine Sulfate 2 mg STK-MED ONCE .ROUTE Last administered on 09/27/16 11:39 ; Start 09/27/16 at 11:39; Stop 09/27/16 at 11:40; Status DC Amlodipine Besylate (Norvasc) 10 mg DAILY PO Last administered on 09/30/16 09: 21; Start 09/27/16 at 14:00 Labetalol HCl (Normodyne) 20 mg PRN Q6HRS PRN IVP HYPERTENSION, SEE COMMENTS Last administered on 09/29/16 04:07; Start 09/27/16 at 16:30 Temazepam (Restoril) 15 mg PRN QHS PRN PO INSOMNIA Last administered on 23:41; Start 09/28/16 at 23:30 Famotidine 20 mg 20 mg [id number] IVP Last administered on 09/29/16 14:53; Start at 09:15; Stop 10/01/16 at 11:32; Status DC Potassium Chloride/Sodium Chloride (KCl 20 Meq-0.45% Nacl) 1,000 ml @ 75 mls/ hr [id number] IV Last administered on 09/29/16 23:27; Start 09/29/16 at 09:15 Lisinopril (Prinivil) 10 mg DAILY PO Last administered on 09/30/16 09:22; Start 09/30/16 at 09:00 Famotidine (Pepcid) 20 mg BID PO ; Start 10/01/16 at 21:00 Active Scripts Active Reported Multi-Vitamin Daily (Multivitamin) 1 Each Tablet 1 Each PO Vitals/I & O Vital Sign - Last 24 Hours 09/30/16 09/30/16 09/30/16 09/30/16 15:00 19:00 20:00 23:00 Temp 98.1 98.8 98.1 98.1 98.8 98.1 Pulse 103 72 69 Resp 18 16 14 B/P 100/66 113/75 106/66 Pulse Ox 97 95 98 O2 Delivery Room Air Room Air Room Air Room Air 10/01/16 10/01/16 10/01/16 10/01/16 03:00 07:00 07:35 10:44 Temp 98.3 98.0 97.5 98.3 98.0 97.5 Pulse 94 88 94 Resp 16 16 16 B/P 107/60 96/66 93/67 Pulse Ox 96 95 96 O2 Delivery Room Air Room Air Room Air Room Air Intake and Output 09/30/16 09/30/16 10/01/16 15:00 23:00 07:00 Intake Total 1200 ml 150 ml Balance 1200 ml 150 ml ERIS SOW III DO Oct 01, 2016 11:48
--- NOTE | 2016-10-01 12:44 | PDOC ---
SURGICAL PROGRESS NOTE Subjective tolerating diet having stools no significant pain Vital Signs Vital Signs Date Time Temp Pulse Resp B/P Pulse Ox O2 Delivery O2 Flow Rate FiO2 10/01/16 10:44 97.5 94 16 93/67 96 Room Air 97.5 I&O Intake and Output 10/01/16 07:00 Intake Total 1350 ml Balance 1350 ml Intake Oral 1350 ml PATIENT HAS A BANEGAS: No General: Alert, Oriented X3, Cooperative, No acute distress Abdomen: Soft, Other (ND, NTTP, poli drain in place) Labs Laboratory Tests Test 09/30/16 04:20 10/01/16 04:30 White Blood Count 11.0x10^3/uL (4.0-11.0) 12.0x10^3/uL (4.0-11.0) Red Blood Count 5.47x10^6/uL (4.30-5.70) 5.18x10^6/uL (4.30-5.70) Hemoglobin 16.1g/dL (13.0-17.5) 15.3g/dL (13.0-17.5) Hematocrit 48.6% (39.0-53.0) 46.3% (39.0-53.0) Mean Corpuscular Volume 89fL (79-100) 89fL (79-100) Mean Corpuscular Hemoglobin 30pg (25-35) 30pg (25-35) Mean Corpuscular Hemoglobin Concent 33g/dL (31-37) 33g/dL (31-37) Red Cell Distribution Width 12.9% (11.5-14.5) 12.8% (11.5-14.5) Platelet Count 222x10^3/uL (140-400) 250x10^3/uL (140-400) Neutrophils (%) (Auto) 68% (31-73) 72% (31-73) Lymphocytes (%) (Auto) 22% (24-48) 17% (24-48) Monocytes (%) (Auto) 9% (0-9) 8% (0-9) Eosinophils (%) (Auto) 1% (0-3) 2% (0-3) Basophils (%) (Auto) 1% (0-3) 0% (0-3) Neutrophils # (Auto) 7.4x10^3uL (1.8-7.7) 8.6x10^3uL (1.8-7.7) Lymphocytes # (Auto) 2.5x10^3/uL (1.0-4.8) 2.0x10^3/uL (1.0-4.8) Monocytes # (Auto) 0.9x10^3/uL (0.0-1.1) 1.0x10^3/uL (0.0-1.1) Eosinophils # (Auto) 0.1x10^3/uL (0.0-0.7) 0.2x10^3/uL (0.0-0.7) Basophils # (Auto) 0.1x10^3/uL (0.0-0.2) 0.0x10^3/uL (0.0-0.2) Sodium Level 140mmol/L (136-145) 138mmol/L (136-145) Potassium Level 4.3mmol/L (3.5-5.1) 3.8mmol/L (3.5-5.1) Chloride Level 103mmol/L (98-107) 105mmol/L (98-107) Carbon Dioxide Level 27mmol/L (21-32) 23mmol/L (21-32) Anion Gap 10 (6-14) 10 (6-14) Blood Urea Nitrogen 16mg/dL (8-26) 24mg/dL (8-26) Creatinine 1.1mg/dL (0.7-1.3) 1.0mg/dL (0.7-1.3) Estimated GFR (Cockcroft-Gault) 69.5 77.6 Glucose Level 87mg/dL (70-99) 112mg/dL (70-99) Calcium Level 9.0mg/dL (8.5-10.1) 9.2mg/dL (8.5-10.1) Laboratory Tests Test 10/01/16 04:30 White Blood Count 12.0x10^3/uL (4.0-11.0) Red Blood Count 5.18x10^6/uL (4.30-5.70) Hemoglobin 15.3g/dL (13.0-17.5) Hematocrit 46.3% (39.0-53.0) Mean Corpuscular Volume 89fL (79-100) Mean Corpuscular Hemoglobin 30pg (25-35) Mean Corpuscular Hemoglobin Concent 33g/dL (31-37) Red Cell Distribution Width 12.8% (11.5-14.5) Platelet Count 250x10^3/uL (140-400) Neutrophils (%) (Auto) 72% (31-73) Lymphocytes (%) (Auto) 17% (24-48) Monocytes (%) (Auto) 8% (0-9) Eosinophils (%) (Auto) 2% (0-3) Basophils (%) (Auto) 0% (0-3) Neutrophils # (Auto) 8.6x10^3uL (1.8-7.7) Lymphocytes # (Auto) 2.0x10^3/uL (1.0-4.8) Monocytes # (Auto) 1.0x10^3/uL (0.0-1.1) Eosinophils # (Auto) 0.2x10^3/uL (0.0-0.7) Basophils # (Auto) 0.0x10^3/uL (0.0-0.2) Sodium Level 138mmol/L (136-145) Potassium Level 3.8mmol/L (3.5-5.1) Chloride Level 105mmol/L (98-107) Carbon Dioxide Level 23mmol/L (21-32) Anion Gap 10 (6-14) Blood Urea Nitrogen 24mg/dL (8-26) Creatinine 1.0mg/dL (0.7-1.3) Estimated GFR (Cockcroft-Gault) 77.6 Glucose Level 112mg/dL (70-99) Calcium Level 9.2mg/dL (8.5-10.1) Problem List Problems Medical Problems: (1) Tubular adenoma of colon Status: Acute Assessment/Plan s/p lap right colon DC poli drain DC home Problems: CALLIE VERDIN [employer] Oct 01, 2016 12:44
[2016-10-01] MEDS ORDERED: LISI10TA2 PO (12:47)
[2016-10-01] MEDS ORDERED: HYDR-971 PO (12:47)
[2016-10-01] MEDS ORDERED: FAMOTIDINE 20 MG TABLET. PO SCH (21:00)
== END 2016-10-01 15:00 | disposition home or self-care (01) | DRG 331 ==
LOC: OPSVCIP 05:44 → 4 NORTH 12:30
PROVIDERS: ADMIT Surgery; ATTEND Surgery
PROC: 0DTF4ZZ Resection of Right Large Intestine, Percutaneous Endoscopic Approach (ICD-10-PCS; principal; 2016-09-27 07:30)
DX: D12.6 Benign neoplasm of colon, unspecified (principal); K21.9 Gastro-esophageal reflux disease without esophagitis; I10 Essential (primary) hypertension; G47.00 Insomnia, unspecified; Z80.1 Family history of malignant neoplasm of trachea, bronchus and lung; Z82.49 Family history of ischemic heart disease and other diseases of the circulatory system; K59.00 Constipation, unspecified; T50.995A Adverse effect of other drugs, medicaments and biological substances, initial encounter; E66.9 Obesity, unspecified; Z68.26 Body mass index [BMI] 26.0-26.9, adult
CPT/HCPCS: 36415; 80048; 80053; 85007; 85027; 88309; J0690; J1100; J1170; J1650; J2250; J2270; J2370; J2405; J2704; J2710; J3010; J3490; J7030; J7120; S0028